=== PATIENT | female | born 1950 | race African-American/Black ===

== ENCOUNTER 2017-04-08 07:51 | Emergency (ER) | payer MEDICARE, MEDICAID, OTHER ==
[~2017-04-08] VITALS: Ht 162.6 cm; Wt 86.0 kg
[~2017-04-08 07:51] MED LIST: AMLO1TAB12 PO; ASPI-1073 PO; PANT40TA4 PO; RENVELA
[2017-04-08] MEDS ORDERED: HYDROCODONE/ACETAMINOPHEN 5/325MG TABLET PO ONE (08:30)
[2017-04-08] MEDS ORDERED: ONDANSETRON 4MG ODT PO ONE (08:30)
[2017-04-08] MEDS ORDERED: AMLODIPINE 5MG TABLET PO ONE (09:30)
[2017-04-08] MEDS ORDERED: LOSARTAN POTASSIUM 100 MG TABLET PO NR (10:15)
[2017-04-08 11:15] VITALS: BP 145/83
== END 2017-04-08 11:59 | disposition home or self-care (01) ==
LOC: ER 08:00
DX: S42.031A Displaced fracture of lateral end of right clavicle, initial encounter for closed fracture (principal); Y92.9 Unspecified place or not applicable; Y93.9 Activity, unspecified; X58.XXXA Exposure to other specified factors, initial encounter; I12.0 Hypertensive chronic kidney disease with stage 5 chronic kidney disease or end stage renal disease; N18.6 End stage renal disease; Z99.2 Dependence on renal dialysis; E03.9 Hypothyroidism, unspecified; Z79.82 Long term (current) use of aspirin; Z79.899 Other long term (current) drug therapy
CPT/HCPCS: 29105; 73030; 99284; Q0162; A4565

== ENCOUNTER 2018-08-06 12:38 | Inpatient (IN) | payer MEDICARE, OTHER ==
[~2018-08-06] VITALS: Ht 160 cm; Wt 111.6 kg
[~2018-08-06 12:38] MED LIST changes: +AMLO10TA80 PO; -AMLO1TAB12 PO; -ASPI-1073 PO; +CINA30 PO; +HYDR100T26 PO; +LEVO25TA7 PO; +LOSA100T14 PO; -PANT40TA4 PO; -RENVELA; +SEVE800T8 PO
[2018-08-06] MEDS ORDERED: MORPHINE SULFATE 4 MG/ML CPJ (NOT FOR IM USE) IV ONE (14:15)
[2018-08-06] MEDS ORDERED: MORPHINE SULFATE 10 MG/ML CPJ IV ONE (14:30)
[2018-08-06 14:38] LABS: BASOPHILS % 1.2 % (0.0-2.0); EOSINOPHILS % 0.9 % (0.0-5.0); HEMATOCRIT. 33.8 % (36.0-48.0); HEMOGLOBIN. 11.2 g/dL (12.0-16.0); LYMPHOCYTES % 16.5 % (20.0-50.0); MEAN CORPUSCULAR HEMOGLOBIN 33.9 pg (28.0-32.0); MEAN CORPUSCULAR VOLUME 102.1 fL (81.0-99.0); MEAN PLATELET VOLUME 7.4 fl (7.4-10.4); MONOCYTES % 9.4 % (2.0-8.0); PLATELET 269 x1000/uL (130-400); RED BLOOD CELL COUNT 3.31 mill/uL (4.2-5.4); RED CELL DISTRIBUTION WIDTH 16.6 % (11.6-14.6)
[2018-08-06 14:43] LABS: CHLORIDE 97 mEq/L (98-107)
[2018-08-06 14:44] LABS: INR 1.1; PROTHROMBIN TIME 10.9 sec (9.1-11.1)
[2018-08-06 22:45] VITALS: BP 157/84
[2018-08-07] VITALS: BP 157/84
[2018-08-07] MEDS ORDERED: CLONIDINE 0.1MG TABLET PO PRN (01:15)
[2018-08-07] MEDS: MORPHINE SULFATE 10 MG/ML CPJ IV PRN ×4 (03:07→22:16)
[2018-08-07 04:00] VITALS: BP_SYST 131; BP_SYST 133; BP_SYST 138; BP_DIAS 64; BP_DIAS 74; BP_DIAS 78
[2018-08-07 08:00] VITALS: BP 146/65
[2018-08-07] MEDS: LOSARTAN POTASSIUM 100 MG TABLET PO SCH (08:47)
[2018-08-07] MEDS: HYDRALAZINE HCL 100MG TABLET PO SCH ×2 (08:47→21:48)
[2018-08-07] MEDS: CINACALCET HCL 30MG TABLET PO SCH (08:47)
[2018-08-07] MEDS: SEVELAMER CARBONATE 800 MG TABLET PO SCH ×3 (08:47→17:36)
[2018-08-07] MEDS: ACETAMINOPHEN 325MG TABLET PO PRN (08:48)
[2018-08-07] MEDS: AMLODIPINE 10MG TABLET PO SCH (08:48)
[2018-08-07] MEDS: PANTOPRAZOLE 40MG DR TABLET PO SCH (08:48)
[2018-08-07] MEDS ORDERED: MEDICATION NOT ON FORMULARY EA (Losartan Potassium 100 MG) PO SCH (09:00)
[2018-08-07] MEDS ORDERED: MEDICATION NOT ON FORMULARY EA (Sevelamer Carbonate (Renvela) 800 MG) PO SCH (09:00)
[2018-08-07] MEDS ORDERED: MEDICATION NOT ON FORMULARY EA (Hydralazine Hcl 100 MG) PO SCH (09:00)
[2018-08-07] MEDS ORDERED: CEFEPIME HCL 1000MG/VIAL INJ IM SCH (09:00)
[2018-08-07 10:23] LABS: CHLORIDE 98 mEq/L (98-107)
[2018-08-07 10:27] LABS: BASOPHILS % 1.3 % (0.0-2.0); EOSINOPHILS % 3.1 % (0.0-5.0); HEMATOCRIT. 35.6 % (36.0-48.0); HEMOGLOBIN. 11.6 g/dL (12.0-16.0); LYMPHOCYTES % 20.3 % (20.0-50.0); MEAN CORPUSCULAR HEMOGLOBIN 33.9 pg (28.0-32.0); MEAN CORPUSCULAR VOLUME 103.6 fL (81.0-99.0); MEAN PLATELET VOLUME 7.6 fl (7.4-10.4); MONOCYTES % 9.2 % (2.0-8.0); NEUTROPHILS % 66.1 % (40.0-76.0); PLATELET 230 x1000/uL (130-400); RED BLOOD CELL COUNT 3.43 mill/uL (4.2-5.4); RED CELL DISTRIBUTION WIDTH 16.9 % (11.6-14.6)
[2018-08-07] MEDS ORDERED: VANCOMYCIN 2,000 MG in DEXT 5% WATER 500 ML IV NR (11:00)
[2018-08-07] MEDS: CEFEPIME 500 MG in DEXTROSE 5% WATER 50 ML IV SCH (11:15)
[2018-08-07 12:00] VITALS: BP 124/63
[2018-08-07 16:00] VITALS: BP 144/72
[2018-08-07] MEDS: FOLIC ACID/VITAMIN B COMP W-C TABLET PO SCH (17:35)
[2018-08-07 20:00] VITALS: BP 145/71
[2018-08-08] VITALS: BP 116/62
[2018-08-08 05:30] VITALS: BP 143/82
[2018-08-08] MEDS: MORPHINE SULFATE 10 MG/ML CPJ IV PRN ×3 (06:03→15:34)
[2018-08-08 06:33] LABS: PHOSPHORUS 7.5 mg/dL (2.5-4.9)
[2018-08-08 06:43] LABS: BASOPHILS % 0.5 % (0.0-2.0); HEMATOCRIT. 34.2 % (36.0-48.0); HEMOGLOBIN. 11.2 g/dL (12.0-16.0); LYMPHOCYTES % 21.3 % (20.0-50.0); MEAN CORPUSCULAR HEMOGLOBIN 33.6 pg (28.0-32.0); MEAN CORPUSCULAR VOLUME 102.7 fL (81.0-99.0); MEAN PLATELET VOLUME 7.8 fl (7.4-10.4); MONOCYTES % 9.1 % (2.0-8.0); NEUTROPHILS % 66.1 % (40.0-76.0); PLATELET 236 x1000/uL (130-400); RED BLOOD CELL COUNT 3.33 mill/uL (4.2-5.4); RED CELL DISTRIBUTION WIDTH 16.2 % (11.6-14.6)
[2018-08-08 08:00] VITALS: BP 138/77
[2018-08-08] MEDS: FOLIC ACID/VITAMIN B COMP W-C TABLET PO SCH (09:29)
[2018-08-08] MEDS: PANTOPRAZOLE 40MG DR TABLET PO SCH (09:29)
[2018-08-08] MEDS: HYDRALAZINE HCL 100MG TABLET PO SCH ×2 (09:30→21:00)
[2018-08-08] MEDS: AMLODIPINE 10MG TABLET PO SCH (09:30)
[2018-08-08] MEDS: LOSARTAN POTASSIUM 100 MG TABLET PO SCH (09:30)
[2018-08-08] MEDS: CINACALCET HCL 30MG TABLET PO SCH (09:30)
[2018-08-08] MEDS: CEFEPIME 500 MG in DEXTROSE 5% WATER 50 ML IV SCH (09:31)
[2018-08-08 12:00] VITALS: BP 130/69
[2018-08-08] MEDS ORDERED: LIDOCAINE HCL/PF 1% 2ML VIAL ONE (12:11)
[2018-08-08] MEDS: SEVELAMER CARBONATE 800 MG TABLET PO SCH ×2 (13:48→18:10)
[2018-08-08 16:13] LABS: BG BASE EXCESS 4.6 mmol/L (-2.0-2.0); BG CARBOXYHEMOGLOBIN 1.3 % (0.5-1.5); BG FRACTION INSPIRED OXYGEN 21; BG HCO3 ACT 31.6 mmol/L (22.0-26.0); BG METHEMOGLOBIN 0.3 % (0.0-1.5); BG OXYGEN SATURATION 83.7 % (92.0-98.5); BG OXYHEMOGLOBIN 82.4 % (94.0-97.0); BG PCO2 59.4 mmHg (35.0-45.0); BG PH 7.344 (7.350-7.450); BG PO2 49.8 mmHg (75.0-100.0); BG SAMPLE SITE LEFT RADIAL; BG TOTAL HEMOGLOBIN 11.7 g/dL (12.0-18.0); BG VENT MODE ROOM AIR
[2018-08-08] MEDS: ONDANSETRON HCL 4MG/2ML INJ IV PRN (18:11)
[2018-08-08 20:00] VITALS: BP 126/81
[2018-08-08] MEDS ORDERED: VANCOMYCIN 1250MG in DEXTROSE 5% WATER 250ML IV SCH (20:00)
[2018-08-09] VITALS: BP 114/58
[2018-08-09 04:00] VITALS: BP 111/58
[2018-08-09] MEDS: ONDANSETRON HCL 4MG/2ML INJ IV PRN (05:17)
[2018-08-09 07:48] LABS: HEMATOCRIT 32.7 % (36.0-48.0); HEMOGLOBIN 10.8 g/dL (12.0-16.0); MEAN CORPUSCULAR HEMOGLOBIN 34.2 pg (28.0-32.0); MEAN CORPUSCULAR VOLUME 103.8 fL (81.0-99.0); PLATELET 236 x1000/uL (130-400); RED BLOOD CELL COUNT 3.15 mill/uL (4.2-5.4); RED CELL DISTRIBUTION WIDTH 16.1 % (11.6-14.6)
[2018-08-09 08:00] VITALS: BP 120/59
[2018-08-09] MEDS: MORPHINE SULFATE 10 MG/ML CPJ IV PRN (09:04)
[2018-08-09] MEDS: FOLIC ACID/VITAMIN B COMP W-C TABLET PO SCH (09:05)
[2018-08-09] MEDS: SEVELAMER CARBONATE 800 MG TABLET PO SCH ×3 (09:05→18:10)
[2018-08-09] MEDS: CINACALCET HCL 30MG TABLET PO SCH (09:05)
[2018-08-09] MEDS: LOSARTAN POTASSIUM 100 MG TABLET PO SCH (09:05)
[2018-08-09] MEDS: AMLODIPINE 10MG TABLET PO SCH (09:06)
[2018-08-09] MEDS: FAMOTIDINE 20MG TABLET PO SCH (09:06)
[2018-08-09] MEDS: HYDRALAZINE HCL 100MG TABLET PO SCH ×2 (09:07→20:20)
[2018-08-09] MEDS: CEFEPIME 500 MG in DEXTROSE 5% WATER 50 ML IV SCH (11:59)
[2018-08-09 12:00] VITALS: BP 118/62
[2018-08-09 16:00] VITALS: BP 121/52
[2018-08-09] MEDS: ACETAMINOPHEN 325MG TABLET PO PRN (17:24)
[2018-08-09 20:00] VITALS: BP 109/62
[2018-08-10] VITALS: BP 102/56
[2018-08-10 04:00] VITALS: BP 110/59
[2018-08-10 08:18] VITALS: BP 121/64
[2018-08-10] MEDS: SEVELAMER CARBONATE 800 MG TABLET PO SCH ×3 (10:10→18:13)
[2018-08-10] MEDS: FOLIC ACID/VITAMIN B COMP W-C TABLET PO SCH (10:11)
[2018-08-10] MEDS: FAMOTIDINE 20MG TABLET PO SCH (10:11)
[2018-08-10] MEDS: CINACALCET HCL 30MG TABLET PO SCH (10:11)
[2018-08-10] MEDS: AMLODIPINE 10MG TABLET PO SCH (10:12)
[2018-08-10] MEDS: LOSARTAN POTASSIUM 100 MG TABLET PO SCH (10:12)
[2018-08-10] MEDS: HYDRALAZINE HCL 100MG TABLET PO SCH ×2 (10:12→21:00)
[2018-08-10] MEDS: CEFEPIME 500 MG in DEXTROSE 5% WATER 50 ML IV SCH (10:37)
[2018-08-10 12:03] VITALS: BP 111/48
[2018-08-10 16:13] VITALS: BP 115/59
[2018-08-10 20:00] VITALS: BP 95/46
[2018-08-11] VITALS (22 sets, daily range): BP systolic 92–151; BP diastolic 45–85
[2018-08-11] MEDS: SEVELAMER CARBONATE 800 MG TABLET PO SCH (08:10)
[2018-08-11] MEDS: LOSARTAN POTASSIUM 100 MG TABLET PO SCH (09:00)
[2018-08-11] MEDS: AMLODIPINE 10MG TABLET PO SCH (09:00)
[2018-08-11] MEDS: FOLIC ACID/VITAMIN B COMP W-C TABLET PO SCH (09:00)
[2018-08-11] MEDS: HYDRALAZINE HCL 100MG TABLET PO SCH ×2 (09:00→20:21)
[2018-08-11] MEDS: FAMOTIDINE 20MG TABLET PO SCH (09:00)
[2018-08-11] MEDS: CINACALCET HCL 30MG TABLET PO SCH (09:00)
[2018-08-11] MEDS: CEFEPIME 500 MG in DEXTROSE 5% WATER 50 ML IV SCH (11:37)
[2018-08-11] MEDS ORDERED: FENTANYL CITRATE/PF 50MCG/ML 2ML VIAL ONE (12:54)
[2018-08-11] MEDS ORDERED: LIDOCAINE HCL 1% 20ML VIAL (Pyxis) INJ ONE (13:13)
[2018-08-11] MEDS ORDERED: SODIUM BICARBONATE 4% (2.4MEQ) 5ML VIAL IV ONE (13:14)
[2018-08-11] MEDS ORDERED: FENTANYL CITRATE/PF 50MCG/ML 2ML VIAL IV ONE (14:30)
[2018-08-11 16:24] LABS: HEMATOCRIT 37.1 % (36.0-48.0); HEMOGLOBIN 11.7 g/dL (12.0-16.0)
[2018-08-11 22:47] LABS: INR 1.4; PARTIAL THROMBOPLASTIN TIME 28.1 sec (23.4-31.0); PROTHROMBIN TIME 13.8 sec (9.1-11.1)
[2018-08-12] VITALS (7 sets, daily range): BP systolic 103–167; BP diastolic 54–85
[2018-08-12 06:31] LABS: BASOPHILS % 0.9 % (0.0-2.0); EOSINOPHILS % 4.5 % (0.0-5.0); HEMATOCRIT. 32.8 % (36.0-48.0); HEMOGLOBIN. 10.6 g/dL (12.0-16.0); LYMPHOCYTES % 16.6 % (20.0-50.0); MEAN CORPUSCULAR HEMOGLOBIN 33.9 pg (28.0-32.0); MEAN CORPUSCULAR VOLUME 104.5 fL (81.0-99.0); MEAN PLATELET VOLUME 8.1 fl (7.4-10.4); PLATELET 232 x1000/uL (130-400); RED BLOOD CELL COUNT 3.14 mill/uL (4.2-5.4); RED CELL DISTRIBUTION WIDTH 15.7 % (11.6-14.6)
[2018-08-12] MEDS: SEVELAMER CARBONATE 800 MG TABLET PO SCH ×3 (08:10→17:38)
[2018-08-12] MEDS: HYDRALAZINE HCL 100MG TABLET PO SCH ×2 (08:26→20:18)
[2018-08-12] MEDS: LOSARTAN POTASSIUM 100 MG TABLET PO SCH (08:27)
[2018-08-12] MEDS: FAMOTIDINE 20MG TABLET PO SCH (08:27)
[2018-08-12] MEDS: AMLODIPINE 10MG TABLET PO SCH (08:27)
[2018-08-12] MEDS: CINACALCET HCL 30MG TABLET PO SCH (08:27)
[2018-08-12] MEDS: FOLIC ACID/VITAMIN B COMP W-C TABLET PO SCH (08:27)
[2018-08-12] MEDS: CEFEPIME 500 MG in DEXTROSE 5% WATER 50 ML IV SCH (13:36)
[2018-08-12] MEDS ORDERED: VANCOMYCIN 1 G PREMIX 200 ML IV NR (15:00)
[2018-08-12] MEDS: ACETAMINOPHEN 325MG TABLET PO PRN ×2 (15:16→23:06)
[2018-08-12] MEDS ORDERED: MORPHINE SULFATE 10 MG/ML CPJ IV NR (16:00)
[2018-08-13] MEDS: ACETAMINOPHEN 325MG TABLET PO PRN ×2 (03:52→11:49)
[2018-08-13] MEDS: BISACODYL 5MG TABLET PO PRN ×2 (03:53→18:15)
[2018-08-13 04:00] VITALS: BP 115/55
[2018-08-13 06:20] LABS: CHLORIDE 106 mEq/L (98-107)
[2018-08-13 06:25] LABS: HEMATOCRIT 33.9 % (36.0-48.0); HEMOGLOBIN 10.9 g/dL (12.0-16.0); MEAN CORPUSCULAR HEMOGLOBIN 33.4 pg (28.0-32.0); MEAN CORPUSCULAR VOLUME 104.1 fL (81.0-99.0); PLATELET 203 x1000/uL (130-400); RED BLOOD CELL COUNT 3.26 mill/uL (4.2-5.4); RED CELL DISTRIBUTION WIDTH 15.9 % (11.6-14.6)
[2018-08-13 06:28] LABS: PHOSPHORUS 6.1 mg/dL (2.5-4.9)
[2018-08-13 08:00] VITALS: BP 145/71
[2018-08-13] MEDS: CINACALCET HCL 30MG TABLET PO SCH (08:11)
[2018-08-13] MEDS: FOLIC ACID/VITAMIN B COMP W-C TABLET PO SCH (08:11)
[2018-08-13] MEDS: AMLODIPINE 10MG TABLET PO SCH (08:11)
[2018-08-13] MEDS: HYDRALAZINE HCL 100MG TABLET PO SCH ×2 (08:12→21:22)
[2018-08-13] MEDS: LOSARTAN POTASSIUM 100 MG TABLET PO SCH (10:11)
[2018-08-13] MEDS: FAMOTIDINE 20MG TABLET PO SCH ×2 (10:11→11:49)
[2018-08-13] MEDS: SEVELAMER CARBONATE 800 MG TABLET PO SCH ×3 (10:11→17:46)
[2018-08-13] MEDS: CEFEPIME 500 MG in DEXTROSE 5% WATER 50 ML IV SCH (11:52)
[2018-08-13 12:00] VITALS: BP_SYST 160; BP_SYST 83; BP_DIAS 55; BP_DIAS 80
[2018-08-13 16:00] VITALS: BP 148/81
[2018-08-13 20:00] VITALS: BP 145/52
[2018-08-14] VITALS: BP 135/56
[2018-08-14 04:00] VITALS: BP 125/59
[2018-08-14 08:00] VITALS: BP_SYST 113; BP_SYST 140; BP_DIAS 55; BP_DIAS 60
[2018-08-14] MEDS: FOLIC ACID/VITAMIN B COMP W-C TABLET PO SCH (08:02)
[2018-08-14] MEDS: AMLODIPINE 10MG TABLET PO SCH (08:02)
[2018-08-14] MEDS: CINACALCET HCL 30MG TABLET PO SCH (08:03)
[2018-08-14] MEDS: FAMOTIDINE 20MG TABLET PO SCH (08:03)
[2018-08-14] MEDS: SEVELAMER CARBONATE 800 MG TABLET PO SCH ×3 (08:10→18:13)
[2018-08-14 09:42] LABS: EOSINOPHILS % 3.5 % (0.0-5.0); HEMATOCRIT. 41.9 % (36.0-48.0); HEMOGLOBIN. 13.9 g/dL (12.0-16.0); LYMPHOCYTES % 21.6 % (20.0-50.0); MEAN CORPUSCULAR HEMOGLOBIN 34.3 pg (28.0-32.0); MEAN CORPUSCULAR VOLUME 103.7 fL (81.0-99.0); MEAN PLATELET VOLUME 8.5 fl (7.4-10.4); MONOCYTES % 6.8 % (2.0-8.0); NEUTROPHILS % 67.1 % (40.0-76.0); PLATELET 236 x1000/uL (130-400); RED BLOOD CELL COUNT 4.04 mill/uL (4.2-5.4); RED CELL DISTRIBUTION WIDTH 15.8 % (11.6-14.6)
[2018-08-14 09:54] LABS: PROTHROMBIN TIME 10.2 sec (9.1-11.1)
[2018-08-14] MEDS: CEFEPIME 500 MG in DEXTROSE 5% WATER 50 ML IV SCH (11:17)
[2018-08-14] MEDS: LOSARTAN POTASSIUM 100 MG TABLET PO SCH (11:17)
[2018-08-14 12:00] VITALS: BP 131/76
[2018-08-14] MEDS: ACETAMINOPHEN 325MG TABLET PO PRN (13:11)
[2018-08-14] MEDS: HYDRALAZINE HCL 100MG TABLET PO SCH ×2 (13:12→21:32)
[2018-08-14 16:00] VITALS: BP 127/59
[2018-08-14 20:00] VITALS: BP 107/57
[2018-08-14] MEDS ORDERED: VANCOMYCIN 1 G PREMIX 200 ML IV SCH (21:00)
[2018-08-15] VITALS (32 sets, daily range): BP systolic 96–184; BP diastolic 16–89
[2018-08-15] MEDS: ONDANSETRON HCL 4MG/2ML INJ IV PRN (00:47)
[2018-08-15] MEDS: BISACODYL 5MG TABLET PO PRN (00:47)
[2018-08-15] MEDS: HYDRALAZINE HCL 100MG TABLET PO SCH ×3 (06:00→22:00)
[2018-08-15 06:23] LABS: HEMATOCRIT 32.6 % (36.0-48.0); MEAN CORPUSCULAR HEMOGLOBIN 34.1 pg (28.0-32.0); MEAN CORPUSCULAR VOLUME 101.2 fL (81.0-99.0); PLATELET 193 x1000/uL (130-400); RED BLOOD CELL COUNT 3.22 mill/uL (4.2-5.4); RED CELL DISTRIBUTION WIDTH 15.4 % (11.6-14.6)
[2018-08-15] MEDS: SEVELAMER CARBONATE 800 MG TABLET PO SCH (08:10)
[2018-08-15] MEDS: CINACALCET HCL 30MG TABLET PO SCH (09:00)
[2018-08-15] MEDS: FOLIC ACID/VITAMIN B COMP W-C TABLET PO SCH (09:00)
[2018-08-15] MEDS: LOSARTAN POTASSIUM 100 MG TABLET PO SCH (09:00)
[2018-08-15] MEDS: AMLODIPINE 10MG TABLET PO SCH (09:00)
[2018-08-15] MEDS: FAMOTIDINE 20MG TABLET PO SCH (09:00)
[2018-08-15] MEDS ORDERED: LIDOCAINE HCL/EPINEPHRINE 1%-EPI 1:100,000 20 ML VIAL ONE (10:52)
[2018-08-15] MEDS ORDERED: NORMAL SALINE 0.9% 10 ML SYR ONE (10:52)
[2018-08-15] MEDS ORDERED: THROMBIN (BOVINE) 5000 UNITS/VIAL TOP ONE ×3 (10:52→15:30)
[2018-08-15] MEDS ORDERED: BACITRACIN 50,000 UNITS/VIAL ONE (10:53)
[2018-08-15] MEDS ORDERED: GELATIN SPONGE,ABSORBABLE 12-7MM SPONGE ONE (11:40)
[2018-08-15] MEDS ORDERED: PROPOFOL 200MG/20ML VIAL IV ONE (13:11)
[2018-08-15] MEDS ORDERED: NEOSTIGMINE METHYLSULFATE 1MG/ML 10 ML VIAL ONE (13:11)
[2018-08-15] MEDS ORDERED: MIDAZOLAM HCL 2 MG/2 ML VIAL ONE (13:11)
[2018-08-15] MEDS ORDERED: GLYCOPYRROLATE 0.2 MG/ML 2ML VIAL ONE ×2 (13:11→16:15)
[2018-08-15] MEDS ORDERED: ROCURONIUM BROMIDE 10MG/ML VIAL 5ML IV ONE (13:11)
[2018-08-15] MEDS ORDERED: FENTANYL CITRATE/PF 50MCG/ML 2ML VIAL ONE (13:11)
[2018-08-15] MEDS ORDERED: ONDANSETRON HCL 4MG/2ML INJ ONE (13:13)
[2018-08-15] MEDS ORDERED: DEXAMETHASONE 4MG/ML 1ML VIAL ONE (13:13)
[2018-08-15] MEDS ORDERED: HYDROMORPHONE HCL/PF 2MG/ML (OR) ONE (13:44)
[2018-08-15] MEDS ORDERED: LIDOCAINE HCL/PF 1% 10 MG/ML 5ML VIAL ONE (15:13)
[2018-08-15] MEDS ORDERED: SODIUM CHLORIDE 0.9% 10ML VIAL ONE (15:13)
[2018-08-15] MEDS ORDERED: LABETALOL HCL 5MG/ML VIAL 20ML IV ONE ×2 (15:13→16:35)
[2018-08-15] MEDS ORDERED: CEFAZOLIN SODIUM 1000MG/VIAL ONE (15:13)
[2018-08-15] MEDS ORDERED: EPHEDRINE SULFATE 50MG/ML VIAL ONE (15:13)
[2018-08-15] MEDS: DEXT 5%/LACTATED RINGERS 1,000 ML IV SCH (17:25)
[2018-08-15] MEDS: NICARDIPINE 100 MG in SODIUM CHLORIDE 0.9% 60 ML IV PRN ×2 (17:40→23:25)
[2018-08-15] MEDS ORDERED: HYDROMORPHONE PCA 10MG/50ML IV PRN (18:00)
[2018-08-15] MEDS ORDERED: DIPHENHYDRAMINE INJ IV PRN (18:00)
[2018-08-15] MEDS ORDERED: ONDANSETRON INJ IV PRN (18:00)
[2018-08-15] MEDS ORDERED: NALOXONE INJ IV PRN (18:00)
[2018-08-15] MEDS ORDERED: CEFAZOLIN SODIUM 1000MG/VIAL IV SCH (22:00)
[2018-08-15 23:07] LABS: HEMATOCRIT. 31.8 % (36.0-48.0); HEMOGLOBIN. 10.4 g/dL (12.0-16.0); MEAN CORPUSCULAR HEMOGLOBIN 33.8 pg (28.0-32.0); MEAN CORPUSCULAR VOLUME 103.2 fL (81.0-99.0); MEAN PLATELET VOLUME 8.3 fl (7.4-10.4); PLATELET 249 x1000/uL (130-400); RED BLOOD CELL COUNT 3.08 mill/uL (4.2-5.4); RED CELL DISTRIBUTION WIDTH 14.9 % (11.6-14.6)
[2018-08-15 23:44] LABS: PLATELET ESTIMATE NORMAL
[2018-08-16] VITALS (69 sets, daily range): BP systolic 0–175; BP diastolic 0–174
[2018-08-16 05:04] LABS: HEMATOCRIT. 31.4 % (36.0-48.0); HEMOGLOBIN. 10.3 g/dL (12.0-16.0); MEAN CORPUSCULAR HEMOGLOBIN 33.7 pg (28.0-32.0); MEAN CORPUSCULAR VOLUME 102.7 fL (81.0-99.0); MEAN PLATELET VOLUME 8.1 fl (7.4-10.4); PLATELET 265 x1000/uL (130-400); RED BLOOD CELL COUNT 3.06 mill/uL (4.2-5.4); RED CELL DISTRIBUTION WIDTH 15.4 % (11.6-14.6)
[2018-08-16] MEDS: HYDRALAZINE HCL 100MG TABLET PO SCH ×3 (06:00→21:26)
[2018-08-16] MEDS: SEVELAMER CARBONATE 800 MG TABLET PO SCH ×4 (07:00→17:07)
[2018-08-16] MEDS: NICARDIPINE 100 MG in SODIUM CHLORIDE 0.9% 60 ML IV PRN (07:01)
[2018-08-16] MEDS: FOLIC ACID/VITAMIN B COMP W-C TABLET PO SCH (08:41)
[2018-08-16] MEDS: LOSARTAN POTASSIUM 100 MG TABLET PO SCH (08:41)
[2018-08-16] MEDS: CEFAZOLIN 1000MG PREMIX 50 ML IV SCH (08:41)
[2018-08-16] MEDS: CINACALCET HCL 30MG TABLET PO SCH (08:42)
[2018-08-16] MEDS: FAMOTIDINE 20MG TABLET PO SCH (08:42)
[2018-08-16] MEDS: AMLODIPINE 10MG TABLET PO SCH (08:42)
[2018-08-16] MEDS: DEXT 5%/LACTATED RINGERS 1,000 ML IV SCH (08:49)
[2018-08-16] MEDS ORDERED: HYDROMORPHONE HCL/PF 2MG/ML CPJ IV PRN ×4 (11:15→20:00)
[2018-08-16] MEDS: ONDANSETRON HCL 4MG/2ML INJ IV PRN (17:20)
[2018-08-16 17:49] LABS: PLATELET ESTIMATE NORMAL
[2018-08-16 19:06] LABS: T4 FREE 0.9 ng/dL (0.76-1.46)
[2018-08-16] MEDS: HYDROMORPHONE HCL/PF 2MG/ML CPJ IV PRN (20:08)
[2018-08-17] VITALS (36 sets, daily range): BP systolic 97–128; BP diastolic 33–66
[2018-08-17] MEDS: HYDROMORPHONE HCL/PF 2MG/ML CPJ IV PRN ×4 (01:49→20:27)
[2018-08-17] MEDS: DEXT 5%/LACTATED RINGERS 1,000 ML IV SCH ×2 (01:58→19:08)
[2018-08-17 05:15] LABS: BASOPHILS % 0.4 % (0.0-2.0); EOSINOPHILS % 0.7 % (0.0-5.0); HEMOGLOBIN. 8.9 g/dL (12.0-16.0); LYMPHOCYTES % 9.1 % (20.0-50.0); MEAN CORPUSCULAR HEMOGLOBIN 33.8 pg (28.0-32.0); MEAN CORPUSCULAR VOLUME 103.1 fL (81.0-99.0); MEAN PLATELET VOLUME 8.3 fl (7.4-10.4); MONOCYTES % 9.4 % (2.0-8.0); NEUTROPHILS % 80.4 % (40.0-76.0); PLATELET 202 x1000/uL (130-400); RED BLOOD CELL COUNT 2.62 mill/uL (4.2-5.4); RED CELL DISTRIBUTION WIDTH 15.2 % (11.6-14.6)
[2018-08-17] MEDS: HYDRALAZINE HCL 100MG TABLET PO SCH ×3 (06:00→21:00)
[2018-08-17] MEDS: FAMOTIDINE 20MG TABLET PO SCH (09:26)
[2018-08-17] MEDS: FOLIC ACID/VITAMIN B COMP W-C TABLET PO SCH (09:26)
[2018-08-17] MEDS: CEFAZOLIN 1000MG PREMIX 50 ML IV SCH (09:26)
[2018-08-17] MEDS: LOSARTAN POTASSIUM 100 MG TABLET PO SCH (09:27)
[2018-08-17] MEDS: SEVELAMER CARBONATE 800 MG TABLET PO SCH ×3 (09:27→17:48)
[2018-08-17] MEDS: CINACALCET HCL 30MG TABLET PO SCH (09:27)
[2018-08-17] MEDS: AMLODIPINE 10MG TABLET PO SCH (09:27)
[2018-08-17] MEDS: ONDANSETRON HCL 4MG/2ML INJ IV PRN ×2 (09:28→23:49)
[2018-08-17 17:57] LABS: HEMATOCRIT 26.1 % (36.0-48.0); HEMOGLOBIN 8.4 g/dL (12.0-16.0)
[2018-08-18] VITALS (37 sets, daily range): BP systolic 104–153; BP diastolic 47–98
[2018-08-18] MEDS: HYDROMORPHONE HCL/PF 2MG/ML CPJ IV PRN ×4 (01:03→20:00)
[2018-08-18] MEDS: HYDRALAZINE HCL 100MG TABLET PO SCH ×3 (05:07→21:48)
[2018-08-18 06:20] LABS: BASOPHILS % 0.4 % (0.0-2.0); EOSINOPHILS % 1.4 % (0.0-5.0); HEMATOCRIT. 24.6 % (36.0-48.0); HEMOGLOBIN. 8.1 g/dL (12.0-16.0); MEAN CORPUSCULAR HEMOGLOBIN 33.8 pg (28.0-32.0); MEAN CORPUSCULAR VOLUME 102.7 fL (81.0-99.0); MEAN PLATELET VOLUME 8.3 fl (7.4-10.4); MONOCYTES % 10.9 % (2.0-8.0); NEUTROPHILS % 74.3 % (40.0-76.0); PLATELET 173 x1000/uL (130-400); RED BLOOD CELL COUNT 2.39 mill/uL (4.2-5.4); RED CELL DISTRIBUTION WIDTH 14.8 % (11.6-14.6)
[2018-08-18] MEDS: SEVELAMER CARBONATE 800 MG TABLET PO SCH ×2 (06:45→12:30)
[2018-08-18] MEDS: CINACALCET HCL 30MG TABLET PO SCH (12:03)
[2018-08-18] MEDS: LOSARTAN POTASSIUM 100 MG TABLET PO SCH (12:03)
[2018-08-18] MEDS: FOLIC ACID/VITAMIN B COMP W-C TABLET PO SCH (12:03)
[2018-08-18] MEDS: AMLODIPINE 10MG TABLET PO SCH (12:03)
[2018-08-18] MEDS: FAMOTIDINE 20MG TABLET PO SCH (12:04)
[2018-08-18] MEDS: CEFAZOLIN 1000MG PREMIX 50 ML IV SCH (12:28)
[2018-08-19] VITALS (9 sets, daily range): BP systolic 114–147; BP diastolic 53–73
[2018-08-19] MEDS: HYDROMORPHONE HCL/PF 2MG/ML CPJ IV PRN ×6 (00:20→21:41)
[2018-08-19] MEDS: HYDRALAZINE HCL 100MG TABLET PO SCH ×3 (06:00→21:42)
[2018-08-19] MEDS: FAMOTIDINE 20MG TABLET PO SCH (08:57)
[2018-08-19] MEDS: FOLIC ACID/VITAMIN B COMP W-C TABLET PO SCH (08:58)
[2018-08-19] MEDS: AMLODIPINE 10MG TABLET PO SCH (08:58)
[2018-08-19] MEDS: LOSARTAN POTASSIUM 100 MG TABLET PO SCH (09:00)
[2018-08-19] MEDS: CINACALCET HCL 30MG TABLET PO SCH (10:12)
[2018-08-19] MEDS: CEFAZOLIN 1000MG PREMIX 50 ML IV SCH (11:38)
[2018-08-19] MEDS: SEVELAMER CARBONATE 800 MG TABLET PO SCH ×3 (12:12→18:22)
[2018-08-19 20:42] LABS: HEMATOCRIT 26.5 % (36.0-48.0); HEMOGLOBIN 8.8 g/dL (12.0-16.0); MEAN CORPUSCULAR HEMOGLOBIN 32.3 pg (28.0-32.0); MEAN CORPUSCULAR VOLUME 97.5 fL (81.0-99.0); PLATELET 226 x1000/uL (130-400); RED BLOOD CELL COUNT 2.71 mill/uL (4.2-5.4); RED CELL DISTRIBUTION WIDTH 17.5 % (11.6-14.6)
[2018-08-20] VITALS (7 sets, daily range): BP systolic 117–148; BP diastolic 61–80
[2018-08-20] MEDS: HYDROMORPHONE HCL/PF 2MG/ML CPJ IV PRN ×5 (01:39→18:00)
[2018-08-20] MEDS: HYDRALAZINE HCL 100MG TABLET PO SCH ×3 (05:47→21:34)
[2018-08-20 07:07] LABS: BASOPHILS % 0.6 % (0.0-2.0); EOSINOPHILS % 1.5 % (0.0-5.0); HEMATOCRIT. 30.5 % (36.0-48.0); LYMPHOCYTES % 8.3 % (20.0-50.0); MEAN CORPUSCULAR HEMOGLOBIN 32.1 pg (28.0-32.0); MEAN CORPUSCULAR VOLUME 98.2 fL (81.0-99.0); MEAN PLATELET VOLUME 7.9 fl (7.4-10.4); MONOCYTES % 7.1 % (2.0-8.0); NEUTROPHILS % 82.5 % (40.0-76.0); PLATELET 243 x1000/uL (130-400); RED BLOOD CELL COUNT 3.11 mill/uL (4.2-5.4); RED CELL DISTRIBUTION WIDTH 17.3 % (11.6-14.6)
[2018-08-20] MEDS: SEVELAMER CARBONATE 800 MG TABLET PO SCH ×3 (08:30→17:59)
[2018-08-20] MEDS: CINACALCET HCL 30MG TABLET PO SCH (08:30)
[2018-08-20] MEDS: FAMOTIDINE 20MG TABLET PO SCH (08:30)
[2018-08-20] MEDS: FOLIC ACID/VITAMIN B COMP W-C TABLET PO SCH (08:30)
[2018-08-20] MEDS: CEFAZOLIN 1000MG PREMIX 50 ML IV SCH (08:36)
[2018-08-20] MEDS: AMLODIPINE 10MG TABLET PO SCH (08:37)
[2018-08-20] MEDS: LOSARTAN POTASSIUM 100 MG TABLET PO SCH (08:37)
[2018-08-20] MEDS ORDERED: DOCUSATE SODIUM 250MG CAPSULE PO SCH (09:00)
[2018-08-20] MEDS ORDERED: HYDROCODONE/APAP 7.5/325MG 1 TAB TABLET PO PRN (10:00)
[2018-08-20] MEDS: ACETAMINOPHEN 325MG TABLET PO PRN (21:34)
== END 2018-08-20 23:30 | DRG 459 ==
LOC: ER 12:38 → 7WST 15:19 → ENRESERV 19:54 → MICUSO 08-15 15:02 → 6EST 08-18 18:49
PROVIDERS: ADMIT Internal Medicine; ATTEND Internal Medicine
PROC: 5A1D70Z Performance of Urinary Filtration, Intermittent, Less than 6 Hours Per Day (ICD-10-PCS; 2018-08-08)
PROC: 5A1D70Z Performance of Urinary Filtration, Intermittent, Less than 6 Hours Per Day (ICD-10-PCS; 2018-08-09)
PROC: 0QB03ZX Excision of Lumbar Vertebra, Percutaneous Approach, Diagnostic (ICD-10-PCS; 2018-08-11)
PROC: 5A1D70Z Performance of Urinary Filtration, Intermittent, Less than 6 Hours Per Day (ICD-10-PCS; 2018-08-11)
PROC: 5A1D70Z Performance of Urinary Filtration, Intermittent, Less than 6 Hours Per Day (ICD-10-PCS; 2018-08-14)
PROC: 0SG00K1 Fusion of Lumbar Vertebral Joint with Nonautologous Tissue Substitute, Posterior Approach, Posterior Column, Open Approach (ICD-10-PCS; principal; 2018-08-15)
PROC: 01NB0ZZ Release Lumbar Nerve, Open Approach (ICD-10-PCS; 2018-08-15)
PROC: 4A11X4G Monitoring of Peripheral Nervous Electrical Activity, Intraoperative, External Approach (ICD-10-PCS; 2018-08-15)
PROC: BR191ZZ Fluoroscopy of Lumbar Spine using Low Osmolar Contrast (ICD-10-PCS; 2018-08-15)
PROC: 06HY33Z Insertion of Infusion Device into Lower Vein, Percutaneous Approach (ICD-10-PCS; 2018-08-16)
PROC: B54CZZA Ultrasonography of Left Lower Extremity Veins, Guidance (ICD-10-PCS; 2018-08-16)
PROC: 5A1D70Z Performance of Urinary Filtration, Intermittent, Less than 6 Hours Per Day (ICD-10-PCS; 2018-08-16)
PROC: 5A1D70Z Performance of Urinary Filtration, Intermittent, Less than 6 Hours Per Day (ICD-10-PCS; 2018-08-18)
PROC: 30233N1 Transfusion of Nonautologous Red Blood Cells into Peripheral Vein, Percutaneous Approach (ICD-10-PCS; 2018-08-19)
PROC: 5A1D70Z Performance of Urinary Filtration, Intermittent, Less than 6 Hours Per Day (ICD-10-PCS; 2018-08-20)
DX: M84.48XA Pathological fracture, other site, initial encounter for fracture (principal); I50.33 Acute on chronic diastolic (congestive) heart failure; N18.6 End stage renal disease; C78.00 Secondary malignant neoplasm of unspecified lung; N25.81 Secondary hyperparathyroidism of renal origin; E66.2 Morbid (severe) obesity with alveolar hypoventilation; J44.1 Chronic obstructive pulmonary disease with (acute) exacerbation; I47.2 Ventricular tachycardia; J84.9 Interstitial pulmonary disease, unspecified; C79.51 Secondary malignant neoplasm of bone; G82.20 Paraplegia, unspecified; I13.2 Hypertensive heart and chronic kidney disease with heart failure and with stage 5 chronic kidney disease, or end stage renal disease; G95.9 Disease of spinal cord, unspecified; Z68.41 Body mass index [BMI] 40.0-44.9, adult; Z99.2 Dependence on renal dialysis; E83.39 Other disorders of phosphorus metabolism; E87.5 Hyperkalemia; I27.20 Pulmonary hypertension, unspecified; K21.9 Gastro-esophageal reflux disease without esophagitis; M54.16 Radiculopathy, lumbar region; D18.03 Hemangioma of intra-abdominal structures; D63.1 Anemia in chronic kidney disease; G89.29 Other chronic pain; E11.22 Type 2 diabetes mellitus with diabetic chronic kidney disease; E89.0 Postprocedural hypothyroidism; G47.33 Obstructive sleep apnea (adult) (pediatric); M46.96 Unspecified inflammatory spondylopathy, lumbar region; M48.061 Spinal stenosis, lumbar region without neurogenic claudication; Z79.890 Hormone replacement therapy; Z79.899 Other long term (current) drug therapy; Z93.0 Tracheostomy status; Z99.81 Dependence on supplemental oxygen
CPT/HCPCS: 36415; 36569; 36600; 71045; 72100; 72131; 72148; 74018; 76937; 77012; 80048; 80202; 82375; 82805; 82962; 83735; 83880; 84100; 84145; 84439; 84443; 84481; 84484; 85014; 85018; 85027; 86850; 86900; 86920; 88304; 88305; 88311; 88331; 93005; 93970; 95863; 95925; 95926; 96374; 97110; 97162; 97164; 97167; 97530; 99285; C1713; C1893; J0690; J0692; J1100; J1170; J1642; J2250; J2270; J2405; J2704; J2710; J3010; J3370; J3490; J7040; J7050; J7060; J7121; P9016

== ENCOUNTER 2019-09-02 18:52 | Emergency (ER) | payer MEDICARE, MEDICAID ==
[~2019-09-02] VITALS: Ht 157.5 cm; Wt 109.0 kg
[~2019-09-02 18:52] MED LIST changes: +CEFT2FRO5 IV; +DOCU250C14 PO; +FAMO40TA7 PO; +HYDR-3280 MT; +HYDR-3282 MT; -LOSA100T14 PO; +LOSA100T32 PO; +ONDA4TAB5 MT; +PREG75CA PO
[2019-09-02 20:03] LABS: BASOPHILS % 1.1 % (0.0-2.0); EOSINOPHILS % 3.3 % (0.0-5.0); HEMOGLOBIN. 8.2 g/dL (12.0-16.0); LYMPHOCYTES % 15.3 % (20.0-50.0); MEAN CORPUSCULAR HEMOGLOBIN 33.4 pg (28.0-32.0); MEAN CORPUSCULAR VOLUME 101.4 fL (81.0-99.0); MONOCYTES % 8.1 % (2.0-8.0); NEUTROPHILS % 72.2 % (40.0-76.0); PLATELET 211 x1000/uL (130-400); RED BLOOD CELL COUNT 2.47 mill/uL (4.2-5.4); RED CELL DISTRIBUTION WIDTH 16.4 % (11.6-14.6)
[2019-09-02 20:15] LABS: CHLORIDE 102 mEq/L (98-107)
[2019-09-02] MEDS ORDERED: MORPHINE SULFATE 4 MG/ML CPJ (NOT FOR IM USE) IV ONE (20:30)
[2019-09-02] MEDS ORDERED: ONDANSETRON HCL 4MG/2ML INJ IV ONE (20:30)
[2019-09-02 22:35] VITALS: BP 142/63
== END 2019-09-02 22:53 | disposition home or self-care (01) ==
LOC: ER 18:52 → CANBEDREQ 23:07
DX: M79.601 Pain in right arm (principal)
CPT/HCPCS: 36415; 71045; 76641; 80053; 83735; 84100; 84484; 85025; 86850; 86900; 86901; 93005; 93971; 96374; 96375; 99284; J2270; J2405

== ENCOUNTER → 2020-03-03 | Outpatient (CLI) | payer MEDICARE, MEDICAID ==
[2020-03-03 11:48] LABS: BASOPHILS % 1.1 % (0.0-2.0); EOSINOPHILS % 1.4 % (0.0-5.0); HEMATOCRIT. 32.1 % (36.0-48.0); HEMOGLOBIN. 10.4 g/dL (12.0-16.0); LYMPHOCYTES % 16.6 % (20.0-50.0); MEAN CORPUSCULAR HEMOGLOBIN 31.1 pg (28.0-32.0); MEAN CORPUSCULAR VOLUME 95.7 fL (81.0-99.0); MEAN PLATELET VOLUME 8.3 fl (7.4-10.4); MONOCYTES % 7.9 % (2.0-8.0); PLATELET 232 x1000/uL (130-400); RED BLOOD CELL COUNT 3.35 mill/uL (4.2-5.4); RED CELL DISTRIBUTION WIDTH 17.4 % (11.6-14.6)
[2020-03-03 11:56] LABS: INR 1.2; PARTIAL THROMBOPLASTIN TIME 30.3 sec (23.4-31.0); PROTHROMBIN TIME 12.9 sec (9.6-11.0)
== END | disposition home or self-care (01) ==
LOC: LAB 10:55
PROVIDERS: ATTEND Internal Medicine Hematology & Oncology
DX: Z01.818 Encounter for other preprocedural examination (principal); C34.12 Malignant neoplasm of upper lobe, left bronchus or lung; N18.6 End stage renal disease; Z11.59 Encounter for screening for other viral diseases
CPT/HCPCS: 36415; 80048; 85025; 85610; 85730; C9803; U0003

== ENCOUNTER → 2020-03-08 | Day surgery (SDC) | payer MEDICARE, MEDICAID ==
[2020-03-08] VITALS (21 sets, daily range): BP systolic 140–172; BP diastolic 78–89
[~2020-03-08] VITALS: Ht 160 cm; Wt 93.4 kg
[~2020-03-08] MED LIST changes: +CEFAZOLIN 1000MG PREMIX 50 ML IV ONE; +CEFAZOLIN 1000MG PREMIX 50 ML IV SCH; +FENTANYL CITRATE/PF 50MCG/ML 2ML VIAL IV ONE; +FENTANYL CITRATE/PF 50MCG/ML 2ML VIAL ONE; +LIDOCAINE HCL 1% 20ML VIAL (Pyxis) INJ ONE; +LIDOCAINE HCL/EPINEPHRINE 1%-EPI 1:100,000 20 ML VIAL ONE; +SODIUM BICARBONATE 4% (2.4MEQ) 5ML VIAL IV ONE
== END | disposition home or self-care (01) ==
LOC: RAD 08:13
PROVIDERS: ATTEND Internal Medicine Hematology & Oncology
DX: Z45.2 Encounter for adjustment and management of vascular access device (principal); C34.12 Malignant neoplasm of upper lobe, left bronchus or lung; M19.90 Unspecified osteoarthritis, unspecified site; I50.9 Heart failure, unspecified; I13.2 Hypertensive heart and chronic kidney disease with heart failure and with stage 5 chronic kidney disease, or end stage renal disease; N18.6 End stage renal disease; Z79.899 Other long term (current) drug therapy; Z98.890 Other specified postprocedural states
CPT/HCPCS: 36561; 76937; 77001; J0690; J3010; J3490; 99152; 99153; G0500

== ENCOUNTER 2020-11-11 13:28 | Inpatient (IN) | payer MEDICARE, MEDICAID ==
[~2020-11-11] VITALS: Ht 165.1 cm; Wt 77.1 kg
[~2020-11-11 13:28] MED LIST changes: -CEFAZOLIN 1000MG PREMIX 50 ML IV ONE; -CEFAZOLIN 1000MG PREMIX 50 ML IV SCH; -FENTANYL CITRATE/PF 50MCG/ML 2ML VIAL IV ONE; -FENTANYL CITRATE/PF 50MCG/ML 2ML VIAL ONE; -HYDR-3280 MT; -HYDR-3282 MT; +HYDR-4348 MT; +HYDR-4350 MT; -LIDOCAINE HCL 1% 20ML VIAL (Pyxis) INJ ONE; -LIDOCAINE HCL/EPINEPHRINE 1%-EPI 1:100,000 20 ML VIAL ONE; -SODIUM BICARBONATE 4% (2.4MEQ) 5ML VIAL IV ONE
[2020-11-11] MEDS ORDERED: MORPHINE SULFATE 4 MG/ML CPJ (NOT FOR IM USE) IV STA (14:32)
[2020-11-11] MEDS ORDERED: ONDANSETRON HCL 4MG/2ML INJ IV STA (14:32)
[2020-11-11] MEDS ORDERED: SODIUM CHLORIDE 0.9% 1,000 ML IV ONE (14:45)
[2020-11-11 15:31] LABS: BASOPHILS % 1.2 % (0.0-2.0); EOSINOPHILS % 1.3 % (0.0-5.0); HEMATOCRIT. 37.3 % (36.0-48.0); LYMPHOCYTES % 20.3 % (20.0-50.0); MEAN CORPUSCULAR VOLUME 96.7 fL (81.0-99.0); MEAN PLATELET VOLUME 8.4 fl (7.4-10.4); MONOCYTES % 10.1 % (2.0-8.0); NEUTROPHILS % 67.1 % (40.0-76.0); PLATELET 191 x1000/uL (130-400); RED BLOOD CELL COUNT 3.86 mill/uL (4.2-5.4); RED CELL DISTRIBUTION WIDTH 17.1 % (11.6-14.6)
[2020-11-11 15:32] LABS: CHLORIDE 98 mEq/L (98-107)
[2020-11-11] MEDS ORDERED: CEFTRIAXONE 1 G PREMIX 50 ML IV ONE (16:00)
[2020-11-11] MEDS ORDERED: AZITHROMYCIN 500 MG in DEXT 5% WATER 250 ML IV ONE (16:00)
[2020-11-11] MEDS ORDERED: MORPHINE SULFATE 4 MG/ML CPJ (NOT FOR IM USE) IV ONE (18:30)
[2020-11-11] MEDS ORDERED: ONDANSETRON HCL 4MG/2ML INJ IV PRN (18:45)
[2020-11-11] MEDS ORDERED: LORAZEPAM 0.5MG TABLET PO PRN (18:45)
[2020-11-11] MEDS ORDERED: ACETAMINOPHEN 325MG TABLET PO PRN (18:45)
[2020-11-11] MEDS ORDERED: IPRATROPIUM/ALBUTEROL 0.5-3(2.5)MG/3ML NEB HHN PRN (18:45)
[2020-11-11] MEDS: LIDOCAINE 5% PATCH TOP SCH ×2 (19:37)
[2020-11-11 21:00] VITALS: BP 153/46
[2020-11-12] VITALS: BP 136/37
[2020-11-12] MEDS ORDERED: HYDR-4009 MT (00:50)
[2020-11-12] MEDS ORDERED: *PATIENT'S OWN MEDICATION STORAGE XX SCH (02:45)
[2020-11-12 04:00] VITALS: BP 152/61
[2020-11-12] MEDS: HYDROCODONE/ACETAMINOPHEN 5/325MG TABLET PO PRN ×2 (06:35→13:20)
[2020-11-12 07:12] LABS: BASOPHILS % 0.8 % (0.0-2.0); EOSINOPHILS % 4.1 % (0.0-5.0); HEMOGLOBIN. 11.1 g/dL (12.0-16.0); LYMPHOCYTES % 24.3 % (20.0-50.0); MEAN CORPUSCULAR HEMOGLOBIN 31.6 pg (28.0-32.0); MEAN CORPUSCULAR VOLUME 96.6 fL (81.0-99.0); MEAN PLATELET VOLUME 8.2 fl (7.4-10.4); MONOCYTES % 9.9 % (2.0-8.0); NEUTROPHILS % 60.9 % (40.0-76.0); PLATELET 180 x1000/uL (130-400); RED BLOOD CELL COUNT 3.52 mill/uL (4.2-5.4); RED CELL DISTRIBUTION WIDTH 16.9 % (11.6-14.6)
[2020-11-12 08:00] VITALS: BP 156/41
[2020-11-12] MEDS: LIDOCAINE 5% PATCH TOP SCH ×2 (10:46)
[2020-11-12 12:00] VITALS: BP 187/79
[2020-11-12] MEDS: SEVELAMER CARBONATE 800 MG TABLET PO SCH ×2 (14:31→17:02)
[2020-11-12] MEDS: LEVOTHYROXINE SODIUM 25MCG TABLET PO SCH (14:32)
[2020-11-12] MEDS: CLONIDINE 0.1MG TABLET PO PRN (14:33)
[2020-11-12] MEDS: DOCUSATE SODIUM SUGAR FREE 100MG/10ML UDC PO SCH (14:34)
[2020-11-12] MEDS ORDERED: CINACALCET HCL 60MG TABLET PO SCH (15:00)
[2020-11-12 16:00] VITALS: BP 175/61
[2020-11-12] MEDS ORDERED: CALCIUM CARBONATE 500MG TABLET CHEW PO NR (16:30)
[2020-11-12] MEDS ORDERED: SEVELAMER CARBONATE 800 MG TABLET PO SCH (17:00)
[2020-11-12] MEDS: CINACALCET HCL 30MG TABLET PO SCH (17:02)
[2020-11-12 20:00] VITALS: BP 167/63
[2020-11-12] MEDS: FAMOTIDINE 20MG TABLET PO SCH (23:35)
[2020-11-12] MEDS: PREGABALIN 75MG CAPSULE PO SCH (23:35)
[2020-11-13] VITALS: BP 115/37
[2020-11-13 04:00] VITALS: BP 130/46
[2020-11-13] MEDS: LEVOTHYROXINE SODIUM 25MCG TABLET PO SCH (06:28)
[2020-11-13] MEDS: SEVELAMER CARBONATE 800 MG TABLET PO SCH ×3 (06:28→17:16)
[2020-11-13 06:37] LABS: EOSINOPHILS % 3.5 % (0.0-5.0); HEMATOCRIT. 33.8 % (36.0-48.0); HEMOGLOBIN. 11.1 g/dL (12.0-16.0); LYMPHOCYTES % 19.1 % (20.0-50.0); MEAN CORPUSCULAR HEMOGLOBIN 32.1 pg (28.0-32.0); MEAN PLATELET VOLUME 8.3 fl (7.4-10.4); MONOCYTES % 9.8 % (2.0-8.0); NEUTROPHILS % 66.6 % (40.0-76.0); PLATELET 160 x1000/uL (130-400); RED BLOOD CELL COUNT 3.45 mill/uL (4.2-5.4); RED CELL DISTRIBUTION WIDTH 17.5 % (11.6-14.6)
[2020-11-13 08:00] VITALS: BP 151/68
[2020-11-13] MEDS: DOCUSATE SODIUM SUGAR FREE 100MG/10ML UDC PO SCH (08:54)
[2020-11-13] MEDS: PREGABALIN 75MG CAPSULE PO SCH ×2 (08:54→20:09)
[2020-11-13] MEDS: CINACALCET HCL 30MG TABLET PO SCH (08:54)
[2020-11-13] MEDS: LIDOCAINE 5% PATCH TOP SCH ×2 (08:58)
[2020-11-13] MEDS: HYDROCODONE/ACETAMINOPHEN 10/325MG TABLET PO PRN ×2 (09:02→20:09)
[2020-11-13 12:00] VITALS: BP 156/56
[2020-11-13 16:00] VITALS: BP 147/52
[2020-11-13 20:00] VITALS: BP 135/57
[2020-11-13] MEDS: FAMOTIDINE 20MG TABLET PO SCH (20:09)
[2020-11-14] VITALS: BP 149/50
[2020-11-14] MEDS: DOCUSATE SODIUM 100MG CAPSULE PO PRN (00:40)
[2020-11-14] MEDS: HYDROCODONE/ACETAMINOPHEN 10/325MG TABLET PO PRN ×3 (03:40→17:42)
[2020-11-14 04:00] VITALS: BP 131/60
[2020-11-14] MEDS: LEVOTHYROXINE SODIUM 25MCG TABLET PO SCH (06:08)
[2020-11-14 08:00] VITALS: BP 144/52
[2020-11-14] MEDS: SEVELAMER CARBONATE 800 MG TABLET PO SCH ×3 (08:58→17:42)
[2020-11-14] MEDS: PREGABALIN 75MG CAPSULE PO SCH ×2 (08:58→20:25)
[2020-11-14] MEDS: CINACALCET HCL 30MG TABLET PO SCH (08:58)
[2020-11-14] MEDS: LIDOCAINE 5% PATCH TOP SCH ×2 (08:59)
[2020-11-14] MEDS: DOCUSATE SODIUM SUGAR FREE 100MG/10ML UDC PO SCH (09:01)
[2020-11-14 12:00] VITALS: BP 111/47
[2020-11-14] MEDS ORDERED: LIDOCAINE HCL 1% 20ML VIAL (Pyxis) INJ ONE (14:21)
[2020-11-14] MEDS ORDERED: IOHEXOL-300 50 ML BOTTLE IV ONE (14:21)
[2020-11-14 16:00] VITALS: BP 145/53
[2020-11-14 20:00] VITALS: BP 164/86
[2020-11-14] MEDS: FAMOTIDINE 20MG TABLET PO SCH (20:25)
[2020-11-15] VITALS: BP 135/37
[2020-11-15] MEDS: ACETAMINOPHEN 325MG TABLET PO PRN (02:37)
[2020-11-15 04:00] VITALS: BP 156/45
[2020-11-15 06:02] LABS: BASOPHILS % 0.6 % (0.0-2.0); EOSINOPHILS % 2.4 % (0.0-5.0); HEMATOCRIT. 33.2 % (36.0-48.0); HEMOGLOBIN. 10.9 g/dL (12.0-16.0); LYMPHOCYTES % 19.2 % (20.0-50.0); MEAN CORPUSCULAR HEMOGLOBIN 31.9 pg (28.0-32.0); MEAN CORPUSCULAR VOLUME 97.6 fL (81.0-99.0); MEAN PLATELET VOLUME 8.6 fl (7.4-10.4); MONOCYTES % 9.9 % (2.0-8.0); NEUTROPHILS % 67.9 % (40.0-76.0); PLATELET 147 x1000/uL (130-400); RED CELL DISTRIBUTION WIDTH 16.5 % (11.6-14.6)
[2020-11-15] MEDS: LEVOTHYROXINE SODIUM 25MCG TABLET PO SCH (07:08)
[2020-11-15] MEDS: SEVELAMER CARBONATE 800 MG TABLET PO SCH ×3 (07:09→17:23)
[2020-11-15 08:00] VITALS: BP 164/61
[2020-11-15] MEDS: PREGABALIN 75MG CAPSULE PO SCH ×2 (09:48→20:16)
[2020-11-15] MEDS: CINACALCET HCL 30MG TABLET PO SCH (09:48)
[2020-11-15] MEDS: DOCUSATE SODIUM 100MG CAPSULE PO PRN (09:49)
[2020-11-15] MEDS: CLONIDINE 0.1MG TABLET PO PRN (09:49)
[2020-11-15] MEDS: HYDROCODONE/ACETAMINOPHEN 10/325MG TABLET PO PRN ×2 (09:49→17:27)
[2020-11-15] MEDS: DOCUSATE SODIUM SUGAR FREE 100MG/10ML UDC PO SCH (09:49)
[2020-11-15] MEDS: LIDOCAINE 5% PATCH TOP SCH ×2 (09:51)
[2020-11-15 12:00] VITALS: BP 159/52
[2020-11-15 16:00] VITALS: BP 144/63
[2020-11-15 20:00] VITALS: BP 162/76
[2020-11-15] MEDS: FAMOTIDINE 20MG TABLET PO SCH (20:16)
[2020-11-16] VITALS: BP 144/38
[2020-11-16 04:00] VITALS: BP 144/75
[2020-11-16] MEDS: LEVOTHYROXINE SODIUM 25MCG TABLET PO SCH (05:58)
[2020-11-16 08:00] VITALS: BP 149/70
[2020-11-16] MEDS: LIDOCAINE 5% PATCH TOP SCH ×2 (09:03)
[2020-11-16] MEDS: PREGABALIN 75MG CAPSULE PO SCH ×2 (09:04→20:38)
[2020-11-16] MEDS: DOCUSATE SODIUM SUGAR FREE 100MG/10ML UDC PO SCH (09:04)
[2020-11-16] MEDS: SEVELAMER CARBONATE 800 MG TABLET PO SCH ×3 (09:04→16:55)
[2020-11-16] MEDS: CINACALCET HCL 60MG TABLET PO SCH (09:04)
[2020-11-16] MEDS: ACETAMINOPHEN 325MG TABLET PO PRN (10:49)
[2020-11-16 12:00] VITALS: BP 144/85
[2020-11-16 16:00] VITALS: BP 131/66
[2020-11-16 20:00] VITALS: BP 163/85
[2020-11-16] MEDS: FAMOTIDINE 20MG TABLET PO SCH (20:38)
[2020-11-17] VITALS: BP 167/83
[2020-11-17] MEDS: CLONIDINE 0.1MG TABLET PO PRN (02:53)
[2020-11-17] MEDS: LEVOTHYROXINE SODIUM 25MCG TABLET PO SCH (06:38)
[2020-11-17] MEDS: SEVELAMER CARBONATE 800 MG TABLET PO SCH ×3 (06:39→16:25)
[2020-11-17 08:00] VITALS: BP 127/64
[2020-11-17] MEDS: DOCUSATE SODIUM SUGAR FREE 100MG/10ML UDC PO SCH (09:18)
[2020-11-17] MEDS: CINACALCET HCL 60MG TABLET PO SCH (09:18)
[2020-11-17] MEDS: PREGABALIN 75MG CAPSULE PO SCH ×2 (09:18→21:22)
[2020-11-17] MEDS: LIDOCAINE 5% PATCH TOP SCH ×2 (09:19→09:20)
[2020-11-17 12:00] VITALS: BP 144/79
[2020-11-17] MEDS ORDERED: LIDO700A30 TOP (12:10)
[2020-11-17] MEDS ORDERED: LIDOCAINE HCL 1% 20ML VIAL (Pyxis) INJ INFIL NR (14:00)
[2020-11-17] MEDS ORDERED: BUPIVACAINE HCL/PF 0.25% (2.5MG/ML) 10ML INFIL NR (14:00)
[2020-11-17] MEDS ORDERED: ETHYL CHLORIDE CAN TOP NR (14:00)
[2020-11-17] MEDS ORDERED: TRIAMCINOLONE ACETONIDE 40MG/ML 1ML VIAL IM NR (14:00)
[2020-11-17 16:00] VITALS: BP 150/77
[2020-11-17 20:00] VITALS: BP_SYST 140; BP_SYST 145; BP_DIAS 76
[2020-11-17] MEDS: FAMOTIDINE 20MG TABLET PO SCH (21:22)
[2020-11-18] VITALS: BP 156/88
[2020-11-18 04:00] VITALS: BP 159/79
[2020-11-18] MEDS: SEVELAMER CARBONATE 800 MG TABLET PO SCH ×3 (06:25→17:39)
[2020-11-18] MEDS: LEVOTHYROXINE SODIUM 25MCG TABLET PO SCH (06:25)
[2020-11-18 08:00] VITALS: BP_SYST 121; BP_SYST 145; BP_DIAS 65; BP_DIAS 75
[2020-11-18] MEDS: LIDOCAINE 5% PATCH TOP SCH ×2 (10:33)
[2020-11-18] MEDS: CINACALCET HCL 60MG TABLET PO SCH (10:33)
[2020-11-18] MEDS: PREGABALIN 75MG CAPSULE PO SCH ×2 (10:33→21:42)
[2020-11-18] MEDS: DOCUSATE SODIUM SUGAR FREE 100MG/10ML UDC PO SCH (10:39)
[2020-11-18 12:00] VITALS: BP 145/75
[2020-11-18 16:00] VITALS: BP 170/80
[2020-11-18] MEDS: DEXAMETHASONE 4MG/ML 1ML VIAL IV SCH ×2 (17:40→23:17)
[2020-11-18 20:00] VITALS: BP 122/75
[2020-11-18] MEDS: FAMOTIDINE 20MG TABLET PO SCH (21:42)
[2020-11-19] VITALS (7 sets, daily range): BP systolic 120–157; BP diastolic 42–86
[2020-11-19] MEDS: LEVOTHYROXINE SODIUM 25MCG TABLET PO SCH (06:25)
[2020-11-19] MEDS: DEXAMETHASONE 4MG/ML 1ML VIAL IV SCH ×3 (06:25→18:00)
[2020-11-19 08:03] LABS: BASOPHILS % 0.4 % (0.0-2.0); HEMATOCRIT. 35.4 % (36.0-48.0); HEMOGLOBIN. 11.5 g/dL (12.0-16.0); MEAN CORPUSCULAR HEMOGLOBIN 31.1 pg (28.0-32.0); MEAN CORPUSCULAR VOLUME 95.8 fL (81.0-99.0); MEAN PLATELET VOLUME 9.6 fl (7.4-10.4); MONOCYTES % 7.2 % (2.0-8.0); NEUTROPHILS % 83.4 % (40.0-76.0); PLATELET 166 x1000/uL (130-400); RED CELL DISTRIBUTION WIDTH 15.8 % (11.6-14.6)
[2020-11-19 08:08] LABS: CHLORIDE 103 mEq/L (98-107)
[2020-11-19] MEDS: DOCUSATE SODIUM SUGAR FREE 100MG/10ML UDC PO SCH (09:33)
[2020-11-19] MEDS: SEVELAMER CARBONATE 800 MG TABLET PO SCH ×3 (09:33→17:15)
[2020-11-19] MEDS: PREGABALIN 75MG CAPSULE PO SCH ×2 (09:34→20:22)
[2020-11-19] MEDS: LIDOCAINE 5% PATCH TOP SCH ×2 (09:34→09:35)
[2020-11-19] MEDS: CINACALCET HCL 60MG TABLET PO SCH (09:34)
[2020-11-19] MEDS: FAMOTIDINE 20MG TABLET PO SCH (20:23)
[2020-11-19] MEDS: CLONIDINE 0.1MG TABLET PO PRN ×2 (20:36→20:37)
== END 2020-11-19 22:01 | DRG 553 ==
LOC: ER 13:35 → 7WST 18:30 → EDBEDREQ 18:33 → EDBEDREQTM 18:33 → ENRESERV 20:14 → 5WST 11-13 00:35
PROVIDERS: ADMIT Internal Medicine; ATTEND Internal Medicine
PROC: 5A1D70Z Performance of Urinary Filtration, Intermittent, Less than 6 Hours Per Day (ICD-10-PCS; principal; 2020-11-11)
PROC: 5A1D70Z Performance of Urinary Filtration, Intermittent, Less than 6 Hours Per Day (ICD-10-PCS; 2020-11-14)
PROC: 5A1D70Z Performance of Urinary Filtration, Intermittent, Less than 6 Hours Per Day (ICD-10-PCS; 2020-11-16)
PROC: 5A1D70Z Performance of Urinary Filtration, Intermittent, Less than 6 Hours Per Day (ICD-10-PCS; 2020-11-18)
DX: M16.0 Bilateral primary osteoarthritis of hip (principal); I50.33 Acute on chronic diastolic (congestive) heart failure; N18.6 End stage renal disease; I13.2 Hypertensive heart and chronic kidney disease with heart failure and with stage 5 chronic kidney disease, or end stage renal disease; N25.81 Secondary hyperparathyroidism of renal origin; C34.90 Malignant neoplasm of unspecified part of unspecified bronchus or lung; C79.51 Secondary malignant neoplasm of bone; G82.20 Paraplegia, unspecified; G95.20 Unspecified cord compression; I42.9 Cardiomyopathy, unspecified; M17.0 Bilateral primary osteoarthritis of knee; J44.9 Chronic obstructive pulmonary disease, unspecified; I95.3 Hypotension of hemodialysis; E66.9 Obesity, unspecified; G47.33 Obstructive sleep apnea (adult) (pediatric); D64.9 Anemia, unspecified; M79.651 Pain in right thigh; M79.652 Pain in left thigh; E66.01 Morbid (severe) obesity due to excess calories; E87.5 Hyperkalemia; I25.10 Atherosclerotic heart disease of native coronary artery without angina pectoris; I27.20 Pulmonary hypertension, unspecified; M54.30 Sciatica, unspecified side; M50.30 Other cervical disc degeneration, unspecified cervical region; E03.9 Hypothyroidism, unspecified; G89.29 Other chronic pain; M54.9 Dorsalgia, unspecified; M48.061 Spinal stenosis, lumbar region without neurogenic claudication; M54.16 Radiculopathy, lumbar region; Z85.118 Personal history of other malignant neoplasm of bronchus and lung; Z99.2 Dependence on renal dialysis; Z99.81 Dependence on supplemental oxygen; Z82.49 Family history of ischemic heart disease and other diseases of the circulatory system; Z79.899 Other long term (current) drug therapy; Z68.28 Body mass index [BMI] 28.0-28.9, adult; Z98.890 Other specified postprocedural states; D43.4 Neoplasm of uncertain behavior of spinal cord
CPT/HCPCS: 36415; 36598; 71045; 72100; 72141; 72146; 72148; 73522; 73560; 80048; 80053; 83605; 83880; 84484; 85025; 86850; 86900; 87426; 93005; 93306; 93970; 97162; 97530; 99285; J0456; J0696; J1100; J2270; J2405; J3301; J3490; J7030; J7060; Q9967; U0003

== ENCOUNTER 2020-11-19 21:20 | Inpatient (IN) | payer MEDICARE, MEDICAID ==
[~2020-11-19] VITALS: Ht 165.1 cm; Wt 77.1 kg
[2020-11-19 21:20] VITALS: BP 152/79
[~2020-11-19 21:20] MED LIST changes: -AMLO10TA80 PO; -CEFT2FRO5 IV; +HYDR-4009 MT; -HYDR-4348 MT; -HYDR-4350 MT; -HYDR100T26 PO; +LIDO700A30 TOP; -LOSA100T32 PO
[2020-11-19] MEDS ORDERED: ACETAMINOPHEN 325MG TABLET PO PRN (23:30)
[2020-11-19] MEDS ORDERED: *PATIENT'S OWN MEDICATION STORAGE XX SCH (23:45)
[2020-11-20] MEDS ORDERED: ONDANSETRON HCL 4MG/2ML INJ IV PRN
[2020-11-20] MEDS ORDERED: IPRATROPIUM/ALBUTEROL 0.5-3(2.5)MG/3ML NEB HHN PRN
[2020-11-20] MEDS: DEXAMETHASONE 4MG/ML 1ML VIAL IV SCH ×4 (00:37→18:50)
[2020-11-20] MEDS: DOCUSATE SODIUM 100MG CAPSULE PO PRN (00:37)
[2020-11-20] MEDS: LEVOTHYROXINE SODIUM 25MCG TABLET PO SCH (06:05)
[2020-11-20 07:59] VITALS: BP 150/54
[2020-11-20 08:28] LABS: BASOPHILS % 0.2 % (0.0-2.0); HEMATOCRIT. 34.9 % (36.0-48.0); HEMOGLOBIN. 11.4 g/dL (12.0-16.0); LYMPHOCYTES % 8.2 % (20.0-50.0); MEAN CORPUSCULAR HEMOGLOBIN 31.4 pg (28.0-32.0); MEAN CORPUSCULAR VOLUME 96.4 fL (81.0-99.0); MEAN PLATELET VOLUME 9.8 fl (7.4-10.4); MONOCYTES % 4.8 % (2.0-8.0); NEUTROPHILS % 86.8 % (40.0-76.0); PLATELET 164 x1000/uL (130-400); RED BLOOD CELL COUNT 3.61 mill/uL (4.2-5.4); RED CELL DISTRIBUTION WIDTH 16.1 % (11.6-14.6)
[2020-11-20 08:40] LABS: CHLORIDE 101 mEq/L (98-107)
[2020-11-20] MEDS: SEVELAMER CARBONATE 800 MG TABLET PO SCH ×3 (09:54→17:48)
[2020-11-20] MEDS: PREGABALIN 75MG CAPSULE PO SCH ×2 (09:56→21:52)
[2020-11-20] MEDS: LIDOCAINE 5% PATCH TOP SCH ×2 (10:02)
[2020-11-20] MEDS: DOCUSATE SODIUM SUGAR FREE 100MG/10ML UDC PO SCH (10:03)
[2020-11-20] MEDS: CINACALCET HCL 60MG TABLET PO SCH (10:03)
[2020-11-20] MEDS: CLONIDINE 0.1MG TABLET PO PRN (15:35)
[2020-11-20 20:00] VITALS: BP 137/51
[2020-11-20] MEDS: FAMOTIDINE 20MG TABLET PO SCH (21:52)
[2020-11-21] MEDS: DEXAMETHASONE 4MG/ML 1ML VIAL IV SCH ×4 (00:29→17:39)
[2020-11-21] MEDS: LEVOTHYROXINE SODIUM 25MCG TABLET PO SCH (05:58)
[2020-11-21] MEDS ORDERED: BACITRACIN 50,000 UNITS/VIAL ONE (06:19)
[2020-11-21] MEDS ORDERED: THROMBIN (BOVINE) 5000 UNITS/VIAL TOP ONE (06:20)
[2020-11-21 07:13] LABS: BASOPHILS % 0.1 % (0.0-2.0); HEMATOCRIT. 36.7 % (36.0-48.0); LYMPHOCYTES % 9.3 % (20.0-50.0); MEAN CORPUSCULAR HEMOGLOBIN 30.8 pg (28.0-32.0); MEAN CORPUSCULAR VOLUME 94.6 fL (81.0-99.0); MEAN PLATELET VOLUME 9.8 fl (7.4-10.4); MONOCYTES % 11.7 % (2.0-8.0); NEUTROPHILS % 78.9 % (40.0-76.0); PLATELET 168 x1000/uL (130-400); RED BLOOD CELL COUNT 3.88 mill/uL (4.2-5.4); RED CELL DISTRIBUTION WIDTH 16.1 % (11.6-14.6)
[2020-11-21 07:19] LABS: CHLORIDE 105 mEq/L (98-107)
[2020-11-21 07:27] LABS: TOTAL IRON BINDING CAPACITY 242 ug/dL (250-450)
[2020-11-21 07:28] LABS: PHOSPHORUS 4.8 mg/dL (2.5-4.9)
[2020-11-21 07:49] LABS: FOLIC ACID (FOLATE) SERUM 4.6 ng/mL (>5.38)
[2020-11-21 08:00] VITALS: BP 163/71
[2020-11-21] MEDS: SEVELAMER CARBONATE 800 MG TABLET PO SCH ×3 (08:40→17:39)
[2020-11-21] MEDS: LIDOCAINE 5% PATCH TOP SCH ×2 (08:52→08:58)
[2020-11-21] MEDS: PREGABALIN 75MG CAPSULE PO SCH ×2 (09:04→21:51)
[2020-11-21] MEDS: DOCUSATE SODIUM SUGAR FREE 100MG/10ML UDC PO SCH (09:04)
[2020-11-21] MEDS: CINACALCET HCL 60MG TABLET PO SCH (09:08)
[2020-11-21] MEDS: LOSARTAN POTASSIUM 25 MG TABLET PO SCH (12:05)
[2020-11-21] MEDS: HYDROCODONE/ACETAMINOPHEN 5/325MG TABLET PO PRN (13:06)
[2020-11-21] MEDS: FOLIC ACID 1MG TABLET PO SCH (17:50)
[2020-11-21 20:00] VITALS: BP 154/70
[2020-11-21] MEDS: FAMOTIDINE 20MG TABLET PO SCH (21:51)
[2020-11-22] MEDS: DEXAMETHASONE 4MG/ML 1ML VIAL IV SCH ×4 (01:49→17:30)
[2020-11-22] MEDS: LEVOTHYROXINE SODIUM 25MCG TABLET PO SCH (06:21)
[2020-11-22 07:32] LABS: HEMATOCRIT. 34.5 % (36.0-48.0); HEMOGLOBIN. 11.3 g/dL (12.0-16.0); MEAN CORPUSCULAR HEMOGLOBIN 31.2 pg (28.0-32.0); MEAN CORPUSCULAR VOLUME 95.2 fL (81.0-99.0); MEAN PLATELET VOLUME 9.1 fl (7.4-10.4); PLATELET 152 x1000/uL (130-400); RED BLOOD CELL COUNT 3.63 mill/uL (4.2-5.4); RED CELL DISTRIBUTION WIDTH 15.7 % (11.6-14.6)
[2020-11-22] MEDS: ACETAMINOPHEN 325MG TABLET PO PRN ×2 (07:40→13:07)
[2020-11-22 08:26] VITALS: BP 104/32
[2020-11-22] MEDS: LOSARTAN POTASSIUM 25 MG TABLET PO SCH (09:00)
[2020-11-22] MEDS: DOCUSATE SODIUM SUGAR FREE 100MG/10ML UDC PO SCH (09:00)
[2020-11-22] MEDS: CINACALCET HCL 60MG TABLET PO SCH (09:27)
[2020-11-22] MEDS: PREGABALIN 75MG CAPSULE PO SCH ×2 (09:27→20:42)
[2020-11-22] MEDS: DOCUSATE SODIUM 100MG CAPSULE PO PRN (09:27)
[2020-11-22] MEDS: FOLIC ACID 1MG TABLET PO SCH (09:27)
[2020-11-22] MEDS: SEVELAMER CARBONATE 800 MG TABLET PO SCH ×3 (09:27→17:29)
[2020-11-22] MEDS: LIDOCAINE 5% PATCH TOP SCH ×2 (09:32→09:46)
[2020-11-22 11:19] LABS: PLATELET ESTIMATE NORMAL
[2020-11-22 19:23] LABS: T4 FREE 4.04 ng/dL (0.76-1.46)
[2020-11-22 20:00] VITALS: BP 116/60
[2020-11-22] MEDS: FAMOTIDINE 20MG TABLET PO SCH (20:42)
[2020-11-22] MEDS ORDERED: CEFEPIME 2,000 MG in DEXT 5% WATER 100 ML IV SCH (21:00)
[2020-11-22] MEDS ORDERED: VANCOMYCIN 1500MG in DEXTROSE 5% WATER 250ML IV NR (22:00)
[2020-11-23] MEDS: DEXAMETHASONE 4MG/ML 1ML VIAL IV SCH ×5 (00:26→23:30)
[2020-11-23] MEDS: LEVOTHYROXINE SODIUM 25MCG TABLET PO SCH (06:57)
[2020-11-23 08:00] VITALS: BP 146/58
[2020-11-23] MEDS: DOCUSATE SODIUM SUGAR FREE 100MG/10ML UDC PO SCH (09:00)
[2020-11-23] MEDS: CINACALCET HCL 60MG TABLET PO SCH (09:42)
[2020-11-23] MEDS: FOLIC ACID 1MG TABLET PO SCH (09:42)
[2020-11-23] MEDS: SEVELAMER CARBONATE 800 MG TABLET PO SCH ×3 (09:42→18:00)
[2020-11-23] MEDS: PREGABALIN 75MG CAPSULE PO SCH ×2 (09:42→22:45)
[2020-11-23] MEDS: LIDOCAINE 5% PATCH TOP SCH ×2 (09:44)
[2020-11-23] MEDS: HYDROCODONE/ACETAMINOPHEN 5/325MG TABLET PO PRN (09:52)
[2020-11-23] MEDS: LOSARTAN POTASSIUM 25 MG TABLET PO SCH (09:52)
[2020-11-23] MEDS: LINEZOLID 600 MG PREMIX 300 ML IV SCH (15:38)
[2020-11-23] MEDS ORDERED: VANCOMYCIN 500 MG PREMIX 100 ML IV NR (17:00)
[2020-11-23 20:00] VITALS: BP 153/65
[2020-11-23] MEDS: FAMOTIDINE 20MG TABLET PO SCH (22:45)
[2020-11-23] MEDS: ACETAMINOPHEN 325MG TABLET PO PRN (22:46)
[2020-11-24] MEDS: LINEZOLID 600 MG PREMIX 300 ML IV SCH ×2 (01:01→13:00)
[2020-11-24 04:09] LABS: FOLICLE STIMULATING HORMONE 39.4 mIU/mL (.); LUTEINIZING HORMONE 19.9 mIU/mL (.)
[2020-11-24] MEDS: DEXAMETHASONE 4MG/ML 1ML VIAL IV SCH ×4 (05:47→18:29)
[2020-11-24] MEDS: ACETAMINOPHEN 325MG TABLET PO PRN (05:48)
[2020-11-24] MEDS: CLONIDINE 0.1MG TABLET PO PRN (05:48)
[2020-11-24 07:22] LABS: HEMATOCRIT. 35.4 % (36.0-48.0); HEMOGLOBIN. 11.5 g/dL (12.0-16.0); MEAN CORPUSCULAR HEMOGLOBIN 31.3 pg (28.0-32.0); MEAN PLATELET VOLUME 9.8 fl (7.4-10.4); PLATELET 140 x1000/uL (130-400); RED BLOOD CELL COUNT 3.69 mill/uL (4.2-5.4); RED CELL DISTRIBUTION WIDTH 15.9 % (11.6-14.6)
[2020-11-24 08:00] VITALS: BP 158/69
[2020-11-24] MEDS: DOCUSATE SODIUM SUGAR FREE 100MG/10ML UDC PO SCH ×2 (09:00→09:34)
[2020-11-24] MEDS: LIDOCAINE 5% PATCH TOP SCH ×2 (09:31→09:33)
[2020-11-24] MEDS: FOLIC ACID 1MG TABLET PO SCH (09:33)
[2020-11-24] MEDS: PREGABALIN 75MG CAPSULE PO SCH ×2 (09:33→21:08)
[2020-11-24] MEDS: CINACALCET HCL 60MG TABLET PO SCH (09:33)
[2020-11-24] MEDS: LOSARTAN POTASSIUM 25 MG TABLET PO SCH (09:33)
[2020-11-24] MEDS: SEVELAMER CARBONATE 800 MG TABLET PO SCH ×3 (09:33→17:49)
[2020-11-24] MEDS: LIDOCAINE HCL 4% CREAM 76GM TUBE TP SCH ×2 (12:05→17:51)
[2020-11-24 12:50] LABS: PLATELET ESTIMATE NORMAL
[2020-11-24 20:00] VITALS: BP 148/62
[2020-11-24] MEDS: FAMOTIDINE 20MG TABLET PO SCH (21:07)
[2020-11-25] MEDS: DEXAMETHASONE 4MG/ML 1ML VIAL IV SCH ×4 (00:35→17:16)
[2020-11-25] MEDS: LIDOCAINE HCL 4% CREAM 76GM TUBE TP SCH ×4 (00:35→17:17)
[2020-11-25] MEDS: LINEZOLID 600 MG PREMIX 300 ML IV SCH (01:42)
[2020-11-25 07:08] LABS: 25-HYDROXY VITAMIN D3 7.4 ng/mL (.)
[2020-11-25 08:00] VITALS: BP 133/62
[2020-11-25] MEDS: DOCUSATE SODIUM SUGAR FREE 100MG/10ML UDC PO SCH (09:17)
[2020-11-25] MEDS: LIDOCAINE 5% PATCH TOP SCH ×2 (09:17→09:31)
[2020-11-25] MEDS: SEVELAMER CARBONATE 800 MG TABLET PO SCH ×3 (09:18→17:15)
[2020-11-25] MEDS: CINACALCET HCL 60MG TABLET PO SCH (09:18)
[2020-11-25] MEDS: FOLIC ACID 1MG TABLET PO SCH (09:18)
[2020-11-25] MEDS: LOSARTAN POTASSIUM 50 MG TABLET PO SCH (09:23)
[2020-11-25] MEDS: ACETAMINOPHEN 325MG TABLET PO PRN (12:27)
[2020-11-25] MEDS: PREGABALIN 75MG CAPSULE PO SCH ×2 (12:27→22:18)
[2020-11-25] MEDS: AMPICILLIN 2,000 MG in SODIUM CHLORIDE 0.9% 100 ML IV SCH (12:54)
[2020-11-25 21:46] VITALS: BP 155/52
[2020-11-25] MEDS: FAMOTIDINE 20MG TABLET PO SCH (22:18)
[2020-11-26] MEDS: AMPICILLIN 2,000 MG in SODIUM CHLORIDE 0.9% 100 ML IV SCH ×3 (01:37→23:29)
[2020-11-26] MEDS: LIDOCAINE HCL 4% CREAM 76GM TUBE TP SCH ×5 (06:00→23:30)
[2020-11-26 06:29] LABS: HEMATOCRIT. 33.9 % (36.0-48.0); HEMOGLOBIN. 11.2 g/dL (12.0-16.0); MEAN CORPUSCULAR HEMOGLOBIN 31.5 pg (28.0-32.0); MEAN CORPUSCULAR VOLUME 95.4 fL (81.0-99.0); PLATELET 128 x1000/uL (130-400); RED BLOOD CELL COUNT 3.55 mill/uL (4.2-5.4); RED CELL DISTRIBUTION WIDTH 16.1 % (11.6-14.6)
[2020-11-26 08:22] VITALS: BP 162/60
[2020-11-26] MEDS: CINACALCET HCL 60MG TABLET PO SCH (08:24)
[2020-11-26] MEDS: PREGABALIN 75MG CAPSULE PO SCH ×2 (08:24→20:30)
[2020-11-26] MEDS: LOSARTAN POTASSIUM 50 MG TABLET PO SCH (08:24)
[2020-11-26] MEDS: SEVELAMER CARBONATE 800 MG TABLET PO SCH ×3 (08:24→16:57)
[2020-11-26] MEDS: FOLIC ACID 1MG TABLET PO SCH (08:24)
[2020-11-26] MEDS: LIDOCAINE 5% PATCH TOP SCH ×2 (08:24→08:25)
[2020-11-26] MEDS: DOCUSATE SODIUM SUGAR FREE 100MG/10ML UDC PO SCH (08:27)
[2020-11-26] MEDS: HYDROCODONE/ACETAMINOPHEN 5/325MG TABLET PO PRN (10:08)
[2020-11-26] MEDS ORDERED: ERGOCALCIFEROL 50000UNITS CAPSULE PO SCH (12:00)
[2020-11-26] MEDS ORDERED: SODIUM CHLORIDE 0.9% 1,000 ML IV SCH (12:15)
[2020-11-26 13:20] LABS: PLATELET ESTIMATE NORMAL
[2020-11-26 20:00] VITALS: BP 124/28
[2020-11-26] MEDS: FAMOTIDINE 20MG TABLET PO SCH (20:30)
[2020-11-26 20:55] VITALS: BP 123/30
[2020-11-27 02:17] VITALS: BP 125/61
[2020-11-27] MEDS: ACETAMINOPHEN 325MG TABLET PO PRN (02:18)
[2020-11-27] MEDS: LIDOCAINE HCL 4% CREAM 76GM TUBE TP SCH ×3 (06:26→17:07)
[2020-11-27 06:54] LABS: BASOPHILS % 0.1 % (0.0-2.0); EOSINOPHILS % 3.6 % (0.0-5.0); HEMATOCRIT. 33.3 % (36.0-48.0); HEMOGLOBIN. 10.6 g/dL (12.0-16.0); LYMPHOCYTES % 13.5 % (20.0-50.0); MEAN CORPUSCULAR HEMOGLOBIN 30.7 pg (28.0-32.0); MEAN CORPUSCULAR VOLUME 96.3 fL (81.0-99.0); MEAN PLATELET VOLUME 9.8 fl (7.4-10.4); MONOCYTES % 13.2 % (2.0-8.0); NEUTROPHILS % 69.6 % (40.0-76.0); PLATELET 131 x1000/uL (130-400); RED BLOOD CELL COUNT 3.46 mill/uL (4.2-5.4); RED CELL DISTRIBUTION WIDTH 16.1 % (11.6-14.6)
[2020-11-27 07:59] VITALS: BP 129/62
[2020-11-27] MEDS: LOSARTAN POTASSIUM 50 MG TABLET PO SCH (08:30)
[2020-11-27] MEDS: PREGABALIN 75MG CAPSULE PO SCH ×2 (08:30→21:09)
[2020-11-27] MEDS: SEVELAMER CARBONATE 800 MG TABLET PO SCH ×3 (08:30→16:40)
[2020-11-27] MEDS: FOLIC ACID 1MG TABLET PO SCH (08:30)
[2020-11-27] MEDS: CINACALCET HCL 60MG TABLET PO SCH (08:30)
[2020-11-27] MEDS: LIDOCAINE 5% PATCH TOP SCH ×2 (08:31→08:32)
[2020-11-27] MEDS: LACTOBACILLUS GG CAPSULE PO SCH (09:48)
[2020-11-27] MEDS: AMPICILLIN 2,000 MG in SODIUM CHLORIDE 0.9% 100 ML IV SCH (12:00)
[2020-11-27 20:00] VITALS: BP 141/43
[2020-11-27] MEDS: FAMOTIDINE 20MG TABLET PO SCH (21:09)
[2020-11-28] MEDS: LIDOCAINE HCL 4% CREAM 76GM TUBE TP SCH ×4 (00:12→17:50)
[2020-11-28 08:00] VITALS: BP 138/62
[2020-11-28] MEDS: FOLIC ACID 1MG TABLET PO SCH (08:50)
[2020-11-28] MEDS: SEVELAMER CARBONATE 800 MG TABLET PO SCH ×3 (08:50→17:50)
[2020-11-28] MEDS: LOSARTAN POTASSIUM 50 MG TABLET PO SCH (08:50)
[2020-11-28] MEDS: CINACALCET HCL 60MG TABLET PO SCH (08:50)
[2020-11-28] MEDS: LACTOBACILLUS GG CAPSULE PO SCH (08:50)
[2020-11-28] MEDS: PREGABALIN 75MG CAPSULE PO SCH ×2 (08:51→21:42)
[2020-11-28] MEDS: ACETAMINOPHEN 325MG TABLET PO PRN (08:51)
[2020-11-28] MEDS: LIDOCAINE 5% PATCH TOP SCH ×2 (08:52)
[2020-11-28] MEDS: HYDROCODONE/ACETAMINOPHEN 5/325MG TABLET PO PRN (10:22)
[2020-11-28] MEDS: AMPICILLIN 2,000 MG in SODIUM CHLORIDE 0.9% 100 ML IV SCH ×2 (12:57)
[2020-11-28 20:00] VITALS: BP 134/76
[2020-11-28] MEDS: FAMOTIDINE 20MG TABLET PO SCH (21:42)
[2020-11-29] VITALS (18 sets, daily range): BP systolic 140–163; BP diastolic 38–100
[2020-11-29] MEDS: LIDOCAINE HCL 4% CREAM 76GM TUBE TP SCH ×4 (06:00→18:11)
[2020-11-29] MEDS: LOSARTAN POTASSIUM 50 MG TABLET PO SCH ×2 (09:00→13:09)
[2020-11-29] MEDS: SEVELAMER CARBONATE 800 MG TABLET PO SCH ×3 (09:00→16:28)
[2020-11-29 09:45] LABS: BASOPHILS % 0.3 % (0.0-2.0); EOSINOPHILS % 3.8 % (0.0-5.0); HEMOGLOBIN. 10.4 g/dL (12.0-16.0); LYMPHOCYTES % 15.2 % (20.0-50.0); MEAN CORPUSCULAR HEMOGLOBIN 31.2 pg (28.0-32.0); MEAN CORPUSCULAR VOLUME 96.3 fL (81.0-99.0); MEAN PLATELET VOLUME 9.5 fl (7.4-10.4); MONOCYTES % 7.7 % (2.0-8.0); PLATELET 131 x1000/uL (130-400); RED BLOOD CELL COUNT 3.32 mill/uL (4.2-5.4); RED CELL DISTRIBUTION WIDTH 16.3 % (11.6-14.6)
[2020-11-29 09:53] LABS: CHLORIDE 106 mEq/L (98-107); INR 1.1; PROTHROMBIN TIME 11.8 sec (9.6-11.0)
[2020-11-29 10:02] LABS: T4 FREE 3.49 ng/dL (0.76-1.46)
[2020-11-29] MEDS ORDERED: LIDOCAINE HCL 1% 20ML VIAL (Pyxis) INJ ONE (11:00)
[2020-11-29] MEDS ORDERED: FENTANYL CITRATE/PF 50MCG/ML 2ML VIAL IV ONE (12:00)
[2020-11-29] MEDS ORDERED: FENTANYL CITRATE/PF 50MCG/ML 2ML VIAL ONE (12:03)
[2020-11-29] MEDS: CINACALCET HCL 60MG TABLET PO SCH (13:09)
[2020-11-29] MEDS: CLONIDINE 0.1MG TABLET PO PRN (13:09)
[2020-11-29] MEDS: FOLIC ACID 1MG TABLET PO SCH (13:10)
[2020-11-29] MEDS: LACTOBACILLUS GG CAPSULE PO SCH (13:10)
[2020-11-29] MEDS: PREGABALIN 75MG CAPSULE PO SCH ×2 (13:10→22:12)
[2020-11-29] MEDS: LIDOCAINE 5% PATCH TOP SCH ×2 (13:11)
[2020-11-29] MEDS: METHIMAZOLE 10MG TABLET PO SCH ×2 (13:20→16:28)
[2020-11-29] MEDS: AMPICILLIN 2,000 MG in SODIUM CHLORIDE 0.9% 100 ML IV SCH ×2 (13:20)
[2020-11-29] MEDS: FAMOTIDINE 20MG TABLET PO SCH (22:12)
[2020-11-30] MEDS: LIDOCAINE HCL 4% CREAM 76GM TUBE TP SCH ×4 (05:58→18:35)
[2020-11-30 07:47] VITALS: BP 144/72
[2020-11-30] MEDS: PREGABALIN 75MG CAPSULE PO SCH ×2 (09:52→21:12)
[2020-11-30] MEDS: FOLIC ACID 1MG TABLET PO SCH (09:52)
[2020-11-30] MEDS: CINACALCET HCL 60MG TABLET PO SCH (09:52)
[2020-11-30] MEDS: LACTOBACILLUS GG CAPSULE PO SCH (09:52)
[2020-11-30] MEDS: METHIMAZOLE 10MG TABLET PO SCH ×3 (09:52→16:54)
[2020-11-30] MEDS: SEVELAMER CARBONATE 800 MG TABLET PO SCH ×3 (09:53→16:54)
[2020-11-30] MEDS: LOSARTAN POTASSIUM 50 MG TABLET PO SCH (09:54)
[2020-11-30] MEDS: LIDOCAINE 5% PATCH TOP SCH ×2 (09:55→09:56)
[2020-11-30 12:13] VITALS: BP 144/72
[2020-11-30] MEDS: AMPICILLIN 2,000 MG in SODIUM CHLORIDE 0.9% 100 ML IV SCH ×3 (12:44→23:29)
[2020-11-30] MEDS: HYDROCODONE/ACETAMINOPHEN 5/325MG TABLET PO PRN (12:56)
[2020-11-30 20:00] VITALS: BP 132/71
[2020-11-30] MEDS: FAMOTIDINE 20MG TABLET PO SCH (21:13)
[2020-12-01] MEDS: LIDOCAINE HCL 4% CREAM 76GM TUBE TP SCH ×5 (06:13→23:23)
[2020-12-01 07:08] LABS: BASOPHILS % 0.3 % (0.0-2.0); EOSINOPHILS % 1.3 % (0.0-5.0); HEMATOCRIT. 28.8 % (36.0-48.0); HEMOGLOBIN. 9.6 g/dL (12.0-16.0); LYMPHOCYTES % 12.5 % (20.0-50.0); MEAN CORPUSCULAR HEMOGLOBIN 31.6 pg (28.0-32.0); MEAN CORPUSCULAR VOLUME 94.6 fL (81.0-99.0); MEAN PLATELET VOLUME 9.4 fl (7.4-10.4); MONOCYTES % 8.3 % (2.0-8.0); NEUTROPHILS % 77.6 % (40.0-76.0); PLATELET 121 x1000/uL (130-400); RED BLOOD CELL COUNT 3.05 mill/uL (4.2-5.4); RED CELL DISTRIBUTION WIDTH 16.2 % (11.6-14.6)
[2020-12-01 08:30] VITALS: BP 120/37
[2020-12-01] MEDS: LACTOBACILLUS GG CAPSULE PO SCH (09:38)
[2020-12-01] MEDS: FOLIC ACID 1MG TABLET PO SCH (09:38)
[2020-12-01] MEDS: METHIMAZOLE 10MG TABLET PO SCH ×3 (09:38→17:36)
[2020-12-01] MEDS: LOSARTAN POTASSIUM 50 MG TABLET PO SCH (09:38)
[2020-12-01] MEDS: SEVELAMER CARBONATE 800 MG TABLET PO SCH ×3 (09:38→17:36)
[2020-12-01] MEDS: CINACALCET HCL 60MG TABLET PO SCH (09:38)
[2020-12-01] MEDS: PREGABALIN 75MG CAPSULE PO SCH ×2 (09:39→21:19)
[2020-12-01] MEDS: LIDOCAINE 5% PATCH TOP SCH ×2 (09:43→09:44)
[2020-12-01] MEDS: AMPICILLIN 2,000 MG in SODIUM CHLORIDE 0.9% 100 ML IV SCH ×2 (12:58→23:23)
[2020-12-01 20:00] VITALS: BP 127/72
[2020-12-01] MEDS ORDERED: EPOETIN ALFA-EPBX 4,000 UNIT/ML VIAL SUBCUT SCH (21:00)
[2020-12-01] MEDS: FAMOTIDINE 20MG TABLET PO SCH (21:19)
[2020-12-02] MEDS: LIDOCAINE HCL 4% CREAM 76GM TUBE TP SCH ×2 (06:17→13:47)
[2020-12-02 07:54] VITALS: BP 134/64
[2020-12-02] MEDS: SEVELAMER CARBONATE 800 MG TABLET PO SCH ×2 (08:40→13:47)
[2020-12-02] MEDS: FOLIC ACID 1MG TABLET PO SCH (08:40)
[2020-12-02] MEDS: LACTOBACILLUS GG CAPSULE PO SCH (08:40)
[2020-12-02] MEDS: CINACALCET HCL 60MG TABLET PO SCH (08:40)
[2020-12-02] MEDS: METHIMAZOLE 10MG TABLET PO SCH ×2 (08:40→13:47)
[2020-12-02] MEDS: PREGABALIN 75MG CAPSULE PO SCH (08:40)
[2020-12-02] MEDS: LIDOCAINE 5% PATCH TOP SCH ×2 (08:41)
[2020-12-02 09:31] VITALS: BP 134/64
[2020-12-02] MEDS ORDERED: LOSA50TA3 PO (10:40)
[2020-12-02] MEDS ORDERED: CINA30 PO (10:40)
[2020-12-02] MEDS ORDERED: HYDR-4009 MT (10:40)
[2020-12-02] MEDS ORDERED: TAP PO (10:40)
[2020-12-02 13:56] VITALS: BP 134/64
[2020-12-02] MEDS: HYDROCODONE/ACETAMINOPHEN 5/325MG TABLET PO PRN (13:56)
== END 2020-12-02 15:02 | disposition home health service (06) | DRG 54 ==
PROVIDERS: ADMIT Physical Medicine & Rehabilitation Spinal Cord Injury Medicine; ATTEND Internal Medicine
PROC: 5A1D70Z Performance of Urinary Filtration, Intermittent, Less than 6 Hours Per Day (ICD-10-PCS; 2020-11-20)
PROC: 5A1D70Z Performance of Urinary Filtration, Intermittent, Less than 6 Hours Per Day (ICD-10-PCS; 2020-11-21)
PROC: 5A1D70Z Performance of Urinary Filtration, Intermittent, Less than 6 Hours Per Day (ICD-10-PCS; 2020-11-23)
PROC: 5A1D70Z Performance of Urinary Filtration, Intermittent, Less than 6 Hours Per Day (ICD-10-PCS; 2020-11-25)
PROC: 0JPT0WZ Removal of Totally Implantable Vascular Access Device from Trunk Subcutaneous Tissue and Fascia, Open Approach (ICD-10-PCS; principal; 2020-11-29)
PROC: 02PYX3Z Removal of Infusion Device from Great Vessel, External Approach (ICD-10-PCS; 2020-11-29)
DX: C79.49 Secondary malignant neoplasm of other parts of nervous system (principal); N18.6 End stage renal disease; A41.81 Sepsis due to Enterococcus; C79.51 Secondary malignant neoplasm of bone; T80.211A Bloodstream infection due to central venous catheter, initial encounter; C34.90 Malignant neoplasm of unspecified part of unspecified bronchus or lung; C79.89 Secondary malignant neoplasm of other specified sites; G82.20 Paraplegia, unspecified; G95.20 Unspecified cord compression; I13.2 Hypertensive heart and chronic kidney disease with heart failure and with stage 5 chronic kidney disease, or end stage renal disease; I50.32 Chronic diastolic (congestive) heart failure; E66.01 Morbid (severe) obesity due to excess calories; E87.5 Hyperkalemia; G47.33 Obstructive sleep apnea (adult) (pediatric); I25.10 Atherosclerotic heart disease of native coronary artery without angina pectoris; I27.20 Pulmonary hypertension, unspecified; I50.9 Heart failure, unspecified; J44.9 Chronic obstructive pulmonary disease, unspecified; M16.0 Bilateral primary osteoarthritis of hip; M17.0 Bilateral primary osteoarthritis of knee; M54.30 Sciatica, unspecified side; Z20.822 Contact with and (suspected) exposure to COVID-19; R53.81 Other malaise; E53.8 Deficiency of other specified B group vitamins; E55.9 Vitamin D deficiency, unspecified; R51.9 Headache, unspecified; R19.7 Diarrhea, unspecified; E89.0 Postprocedural hypothyroidism; F39 Unspecified mood [affective] disorder; M50.90 Cervical disc disorder, unspecified, unspecified cervical region; D63.1 Anemia in chronic kidney disease; I08.1 Rheumatic disorders of both mitral and tricuspid valves; I27.21 Secondary pulmonary arterial hypertension; Y84.8 Other medical procedures as the cause of abnormal reaction of the patient, or of later complication, without mention of misadventure at the time of the procedure; Z82.49 Family history of ischemic heart disease and other diseases of the circulatory system; Z85.118 Personal history of other malignant neoplasm of bronchus and lung; Z91.81 History of falling; Z99.2 Dependence on renal dialysis; Z99.81 Dependence on supplemental oxygen; Z68.28 Body mass index [BMI] 28.0-28.9, adult; Z91.15 Patient's noncompliance with renal dialysis; Y92.89 Other specified places as the place of occurrence of the external cause
CPT/HCPCS: 36415; 36590; 70551; 71045; 77001; 80048; 80053; 80202; 82306; 82607; 82728; 82746; 82962; 83001; 83002; 83520; 83540; 83550; 83735; 84100; 84134; 84145; 84439; 84443; 84481; 85014; 85018; 85025; 87077; 87186; 87426; 88300; 93005; 93970; 97110; 97116; 97162; 97166; 97530; 97535; 99152; 99153; A6261; J0290; J0692; J0885; J1100; J2020; J3010; J3370; J3490; J7040; J7050; J7060; G0500

== ENCOUNTER 2021-05-08 22:30 | Inpatient (IN) | payer MEDICARE, MEDICAID ==
[~2021-05-08] VITALS: Ht 157.5 cm; Wt 72.1 kg
[2021-05-08 22:30] VITALS: BP 122/73
[~2021-05-08 22:30] MED LIST changes: -LEVO25TA7 PO; +LOSA50TA3 PO; +OXYC20TA56 PO; +REN800 PO; +TAP PO
[2021-05-09] MEDS ORDERED: NITROGLYCERIN 0.4MG TABLET SL SL PRN (00:15)
[2021-05-09] MEDS ORDERED: ONDANSETRON HCL 4MG TABLET PO PRN (00:15)
[2021-05-09] MEDS ORDERED: IPRATROPIUM/ALBUTEROL 0.5-3(2.5)MG/3ML NEB HHN PRN (00:15)
[2021-05-09] MEDS ORDERED: DIPHENHYDRAMINE 25MG CAPSULE PO PRN (00:15)
[2021-05-09] MEDS ORDERED: ACETAMINOPHEN 325MG TABLET PO PRN (00:15)
[2021-05-09] MEDS ORDERED: GUAIFENESIN 200MG/10ML SUGAR FREE UDC PO PRN (00:15)
[2021-05-09] MEDS ORDERED: CLONIDINE 0.1MG TABLET PO PRN (00:15)
[2021-05-09] MEDS ORDERED: OXYCODONE HCL 20MG TABLET SR 12HR PO PRN (02:00)
[2021-05-09] MEDS ORDERED: NA PHOS,M-B/NA PHOS,DI-BA ENEMA 118ML PR ONE (02:00)
[2021-05-09] MEDS: FAMOTIDINE 20MG TABLET PO SCH ×3 (06:23→22:17)
[2021-05-09 07:16] LABS: BASOPHILS % 0.7 % (0.0-2.0); EOSINOPHILS % 2.6 % (0.0-5.0); HEMATOCRIT. 24.5 % (36.0-48.0); HEMOGLOBIN. 8.2 g/dL (12.0-16.0); LYMPHOCYTES % 10.8 % (20.0-50.0); MEAN CORPUSCULAR VOLUME 95.8 fL (81.0-99.0); MEAN PLATELET VOLUME 9.3 fl (7.4-10.4); MONOCYTES % 6.5 % (2.0-8.0); NEUTROPHILS % 79.4 % (40.0-76.0); PLATELET 140 x1000/uL (130-400); RED BLOOD CELL COUNT 2.56 mill/uL (4.2-5.4); RED CELL DISTRIBUTION WIDTH 16.3 % (11.6-14.6)
[2021-05-09 07:28] LABS: CHLORIDE 105 mEq/L (98-107)
[2021-05-09] MEDS: ZINC SULFATE 220 MG ( 50 ) CAPSULE PO SCH (08:25)
[2021-05-09] MEDS: HYDROCODONE/ACETAMINOPHEN 10/325MG TABLET PO PRN (08:25)
[2021-05-09] MEDS: SEVELAMER CARBONATE 800 MG TABLET PO SCH ×3 (08:25→17:22)
[2021-05-09] MEDS: PREGABALIN 75MG CAPSULE PO SCH ×2 (08:26→22:16)
[2021-05-09] MEDS: ASCORBIC ACID 500 MG TABLET PO SCH ×2 (08:26→22:17)
[2021-05-09] MEDS: DOCUSATE SODIUM 100MG CAPSULE PO PRN (08:26)
[2021-05-09] MEDS: CINACALCET HCL 60MG TABLET PO SCH (08:26)
[2021-05-09] MEDS: CHOLECALCIFEROL (D3) 1000 UNIT TABLET PO SCH (08:26)
[2021-05-09 08:30] VITALS: BP 107/53
[2021-05-09] MEDS: LOSARTAN POTASSIUM 50 MG TABLET PO SCH (08:31)
[2021-05-09] MEDS: LIDOCAINE 5% PATCH TOP SCH (08:32)
[2021-05-09] MEDS: DOCUSATE SODIUM 250MG CAPSULE PO SCH (08:32)
[2021-05-09] MEDS ORDERED: ASCORBIC ACID 500 MG TABLET PO SCH (09:00)
[2021-05-09] MEDS ORDERED: CHOLECALCIFEROL (VIT D3) 400 UNIT TABLET PO SCH (09:00)
[2021-05-09 10:39] VITALS: BP 120/65
[2021-05-09] MEDS ORDERED: LIDOCAINE HCL/EPINEPHRINE 1%-EPI 1:100,000 20 ML VIAL INFIL NR (14:00)
[2021-05-09] MEDS ORDERED: LIDOCAINE HCL 2% JELLY 5ML TOP NR (14:00)
[2021-05-09] MEDS ORDERED: NALOXONE HCL 0.4MG/ML VIAL IV PRN (16:15)
[2021-05-09] MEDS ORDERED: NALOXONE HCL 0.4 MG/ML 1ML VIAL IV PRN (16:30)
[2021-05-09] MEDS ORDERED: MORPHINE SULFATE 2 MG/ML CPJ (NOT FOR IM USE) IV PRN (16:30)
[2021-05-09] MEDS: ACETAMINOPHEN 325MG TABLET PO PRN (17:22)
[2021-05-09 20:00] VITALS: BP 127/80
[2021-05-09] MEDS ORDERED: EPOETIN ALFA-EPBX 10,000 UNIT/ML VIAL SUBCUT SCH (21:00)
[2021-05-10] MEDS: HYDROCODONE/ACETAMINOPHEN 10/325MG TABLET PO PRN ×3 (04:24→18:40)
[2021-05-10 05:08] VITALS: BP 129/78
[2021-05-10 06:48] LABS: BASOPHILS % 0.3 % (0.0-2.0); EOSINOPHILS % 2.7 % (0.0-5.0); HEMATOCRIT. 23.7 % (36.0-48.0); HEMOGLOBIN. 7.9 g/dL (12.0-16.0); LYMPHOCYTES % 9.4 % (20.0-50.0); MEAN CORPUSCULAR HEMOGLOBIN 31.8 pg (28.0-32.0); MEAN CORPUSCULAR VOLUME 95.9 fL (81.0-99.0); MEAN PLATELET VOLUME 8.9 fl (7.4-10.4); MONOCYTES % 7.5 % (2.0-8.0); NEUTROPHILS % 80.1 % (40.0-76.0); PLATELET 148 x1000/uL (130-400); RED BLOOD CELL COUNT 2.48 mill/uL (4.2-5.4); RED CELL DISTRIBUTION WIDTH 16.1 % (11.6-14.6)
[2021-05-10 07:00] VITALS: BP 138/65
[2021-05-10 07:04] LABS: CHLORIDE 106 mEq/L (98-107)
[2021-05-10 07:22] LABS: FOLIC ACID (FOLATE) SERUM 2.4 ng/mL (>5.38)
[2021-05-10 07:31] LABS: TOTAL IRON BINDING CAPACITY 133 ug/dL (250-450)
[2021-05-10] MEDS: CINACALCET HCL 60MG TABLET PO SCH (08:17)
[2021-05-10] MEDS: ZINC SULFATE 220 MG ( 50 ) CAPSULE PO SCH (08:17)
[2021-05-10] MEDS: SEVELAMER CARBONATE 800 MG TABLET PO SCH ×3 (08:17→17:35)
[2021-05-10] MEDS: ASCORBIC ACID 500 MG TABLET PO SCH ×2 (08:17→21:27)
[2021-05-10] MEDS: DOCUSATE SODIUM 250MG CAPSULE PO SCH (08:17)
[2021-05-10] MEDS: LOSARTAN POTASSIUM 50 MG TABLET PO SCH (08:17)
[2021-05-10] MEDS: PREGABALIN 75MG CAPSULE PO SCH ×2 (08:17→21:27)
[2021-05-10] MEDS: CHOLECALCIFEROL (D3) 1000 UNIT TABLET PO SCH (08:18)
[2021-05-10] MEDS: LIDOCAINE 5% PATCH TOP SCH (08:18)
[2021-05-10] MEDS ORDERED: LIDOCAINE HCL 2% JELLY 5ML TOP NR (10:00)
[2021-05-10] MEDS ORDERED: LIDOCAINE HCL/EPINEPHRINE 1%-EPI 1:100,000 20 ML VIAL INFIL NR (10:00)
[2021-05-10] MEDS: ERGOCALCIFEROL 50000UNITS CAPSULE PO SCH (14:59)
[2021-05-10] MEDS: FOLIC ACID 1MG TABLET PO SCH (14:59)
[2021-05-10] MEDS: CYANOCOBALAMIN 1000MCG/ML VIAL IM SCH (14:59)
[2021-05-10] MEDS: [UNRECOGNIZED DRUG - REMARK] TOP SCH (17:00)
[2021-05-10 18:42] VITALS: BP 135/61
[2021-05-10] MEDS: EPOETIN ALFA-EPBX 10,000 UNIT/ML VIAL SUBCUT SCH (21:27)
[2021-05-11] MEDS: FAMOTIDINE 20MG TABLET PO SCH (06:04)
[2021-05-11 08:01] VITALS: BP 118/47
[2021-05-11] MEDS: FOLIC ACID 1MG TABLET PO SCH (08:31)
[2021-05-11] MEDS: LOSARTAN POTASSIUM 50 MG TABLET PO SCH (08:31)
[2021-05-11] MEDS: HYDROCODONE/ACETAMINOPHEN 10/325MG TABLET PO PRN ×2 (08:31→20:23)
[2021-05-11] MEDS: DOCUSATE SODIUM 250MG CAPSULE PO SCH (08:32)
[2021-05-11] MEDS: CINACALCET HCL 60MG TABLET PO SCH (08:32)
[2021-05-11] MEDS: LIDOCAINE 5% PATCH TOP SCH (08:32)
[2021-05-11] MEDS: ASCORBIC ACID 500 MG TABLET PO SCH ×2 (08:32→20:24)
[2021-05-11] MEDS: ZINC SULFATE 220 MG ( 50 ) CAPSULE PO SCH (08:32)
[2021-05-11] MEDS: CYANOCOBALAMIN 1000MCG/ML VIAL IM SCH (08:32)
[2021-05-11] MEDS: PREGABALIN 75MG CAPSULE PO SCH ×2 (08:32→20:23)
[2021-05-11] MEDS: SEVELAMER CARBONATE 800 MG TABLET PO SCH ×3 (08:32→18:47)
[2021-05-11] MEDS ORDERED: METHIMAZOLE 10MG TABLET PO SCH (09:00)
[2021-05-11] MEDS: [UNRECOGNIZED DRUG - REMARK] TOP SCH (09:00)
[2021-05-11] MEDS: ACETAMINOPHEN 325MG TABLET PO PRN (10:29)
[2021-05-11 13:10] LABS: BASOPHILS % 0.4 % (0.0-2.0); EOSINOPHILS % 1.7 % (0.0-5.0); HEMATOCRIT. 23.6 % (36.0-48.0); HEMOGLOBIN. 7.7 g/dL (12.0-16.0); LYMPHOCYTES % 8.6 % (20.0-50.0); MEAN CORPUSCULAR HEMOGLOBIN 32.3 pg (28.0-32.0); MEAN CORPUSCULAR VOLUME 98.6 fL (81.0-99.0); MEAN PLATELET VOLUME 9.1 fl (7.4-10.4); MONOCYTES % 8.1 % (2.0-8.0); NEUTROPHILS % 81.2 % (40.0-76.0); PLATELET 137 x1000/uL (130-400); RED BLOOD CELL COUNT 2.39 mill/uL (4.2-5.4); RED CELL DISTRIBUTION WIDTH 16.4 % (11.6-14.6)
[2021-05-11 13:31] LABS: T4 FREE 2.57 ng/dL (0.76-1.46)
[2021-05-11 16:24] LABS: HEPATITIS B SURFACE ANTIGEN NEGATIVE
[2021-05-11 20:00] VITALS: BP 127/47
[2021-05-11] MEDS: METHIMAZOLE 10MG TABLET PO SCH (20:24)
[2021-05-12] MEDS: FAMOTIDINE 20MG TABLET PO SCH (06:03)
[2021-05-12 07:54] VITALS: BP 108/45
[2021-05-12] MEDS: DOCUSATE SODIUM 250MG CAPSULE PO SCH (08:30)
[2021-05-12] MEDS: SEVELAMER CARBONATE 800 MG TABLET PO SCH ×3 (08:30→17:36)
[2021-05-12] MEDS: FOLIC ACID 1MG TABLET PO SCH (08:30)
[2021-05-12] MEDS: ASCORBIC ACID 500 MG TABLET PO SCH ×2 (08:30→21:00)
[2021-05-12] MEDS: ZINC SULFATE 220 MG ( 50 ) CAPSULE PO SCH (08:30)
[2021-05-12] MEDS: CINACALCET HCL 60MG TABLET PO SCH (08:30)
[2021-05-12] MEDS: PREGABALIN 75MG CAPSULE PO SCH ×2 (08:30→22:54)
[2021-05-12] MEDS: METHIMAZOLE 10MG TABLET PO SCH ×3 (08:31→17:35)
[2021-05-12] MEDS: HYDROCODONE/ACETAMINOPHEN 10/325MG TABLET PO PRN (08:32)
[2021-05-12] MEDS: [UNRECOGNIZED DRUG - REMARK] TOP SCH (08:44)
[2021-05-12] MEDS: LIDOCAINE 5% PATCH TOP SCH (08:44)
[2021-05-12] MEDS: CYANOCOBALAMIN 1000MCG/ML VIAL IM SCH (08:44)
[2021-05-12] MEDS: LOSARTAN POTASSIUM 50 MG TABLET PO SCH (08:59)
[2021-05-12] MEDS: ACETAMINOPHEN 325MG TABLET PO PRN ×2 (12:52→22:53)
[2021-05-12 20:00] VITALS: BP 124/42
[2021-05-12] MEDS: EPOETIN ALFA-EPBX 10,000 UNIT/ML VIAL SUBCUT SCH (22:45)
[2021-05-13] MEDS: FAMOTIDINE 20MG TABLET PO SCH (06:07)
[2021-05-13 08:11] VITALS: BP 112/55
[2021-05-13 08:26] LABS: HEPATITIS B SURFACE ANTIGEN NEGATIVE
[2021-05-13] MEDS: METHIMAZOLE 10MG TABLET PO SCH ×3 (08:32→17:26)
[2021-05-13] MEDS: CYANOCOBALAMIN 1000MCG/ML VIAL IM SCH (08:32)
[2021-05-13] MEDS: SEVELAMER CARBONATE 800 MG TABLET PO SCH ×3 (08:32→17:26)
[2021-05-13] MEDS: OXYCODONE HCL 20MG TABLET SR 12HR PO SCH ×2 (08:32→20:50)
[2021-05-13] MEDS: CINACALCET HCL 60MG TABLET PO SCH (08:33)
[2021-05-13] MEDS: DOCUSATE SODIUM 250MG CAPSULE PO SCH (08:33)
[2021-05-13] MEDS: PREGABALIN 75MG CAPSULE PO SCH ×2 (08:33→20:49)
[2021-05-13] MEDS: LIDOCAINE 5% PATCH TOP SCH (08:33)
[2021-05-13] MEDS: ZINC SULFATE 220 MG ( 50 ) CAPSULE PO SCH (08:33)
[2021-05-13] MEDS: FOLIC ACID 1MG TABLET PO SCH (08:33)
[2021-05-13] MEDS: LOSARTAN POTASSIUM 50 MG TABLET PO SCH (08:33)
[2021-05-13] MEDS: ASCORBIC ACID 500 MG TABLET PO SCH ×2 (08:34→20:49)
[2021-05-13] MEDS: [UNRECOGNIZED DRUG - REMARK] TOP SCH (09:00)
[2021-05-13] MEDS: HYDROCODONE/ACETAMINOPHEN 10/325MG TABLET PO PRN (15:05)
[2021-05-13] MEDS: ACETAMINOPHEN 325MG TABLET PO PRN (18:04)
[2021-05-13 20:00] VITALS: BP 123/41
[2021-05-14] MEDS ORDERED: HYDROCODONE/ACETAMINOPHEN 10/325MG TABLET PO PRN (00:30)
[2021-05-14] MEDS: FAMOTIDINE 20MG TABLET PO SCH ×2 (07:38→08:04)
[2021-05-14 07:50] VITALS: BP 109/51
[2021-05-14] MEDS: CINACALCET HCL 60MG TABLET PO SCH (08:03)
[2021-05-14] MEDS: DOCUSATE SODIUM 250MG CAPSULE PO SCH (08:03)
[2021-05-14] MEDS: CYANOCOBALAMIN 1000MCG/ML VIAL IM SCH (08:03)
[2021-05-14] MEDS: FOLIC ACID 1MG TABLET PO SCH (08:04)
[2021-05-14] MEDS: PREGABALIN 75MG CAPSULE PO SCH ×2 (08:04→20:31)
[2021-05-14] MEDS: ZINC SULFATE 220 MG ( 50 ) CAPSULE PO SCH (08:04)
[2021-05-14] MEDS: SEVELAMER CARBONATE 800 MG TABLET PO SCH ×3 (08:04→16:50)
[2021-05-14] MEDS: ASCORBIC ACID 500 MG TABLET PO SCH ×2 (08:04→20:31)
[2021-05-14] MEDS: LOSARTAN POTASSIUM 50 MG TABLET PO SCH (08:04)
[2021-05-14] MEDS: METHIMAZOLE 10MG TABLET PO SCH ×3 (08:04→16:50)
[2021-05-14] MEDS: [UNRECOGNIZED DRUG - REMARK] TOP SCH (08:06)
[2021-05-14] MEDS: OXYCODONE HCL 20MG TABLET SR 12HR PO SCH ×2 (08:10→21:00)
[2021-05-14] MEDS: LIDOCAINE 5% PATCH TOP SCH (08:11)
[2021-05-14 20:00] VITALS: BP 106/46
[2021-05-15] MEDS: OXYCODONE HCL 20MG TABLET SR 12HR PO SCH ×3 (02:58→21:49)
[2021-05-15 07:13] LABS: BASOPHILS % 0.5 % (0.0-2.0); HEMATOCRIT. 22.8 % (36.0-48.0); HEMOGLOBIN. 7.4 g/dL (12.0-16.0); LYMPHOCYTES % 12.2 % (20.0-50.0); MEAN CORPUSCULAR HEMOGLOBIN 32.3 pg (28.0-32.0); MEAN CORPUSCULAR VOLUME 99.7 fL (81.0-99.0); MEAN PLATELET VOLUME 8.4 fl (7.4-10.4); MONOCYTES % 7.9 % (2.0-8.0); NEUTROPHILS % 77.4 % (40.0-76.0); PLATELET 138 x1000/uL (130-400); RED BLOOD CELL COUNT 2.28 mill/uL (4.2-5.4); RED CELL DISTRIBUTION WIDTH 16.8 % (11.6-14.6)
[2021-05-15 07:50] VITALS: BP 108/57
[2021-05-15] MEDS: LOSARTAN POTASSIUM 50 MG TABLET PO SCH (09:00)
[2021-05-15] MEDS: LIDOCAINE 5% PATCH TOP SCH (09:02)
[2021-05-15] MEDS: SEVELAMER CARBONATE 800 MG TABLET PO SCH ×3 (09:03→17:35)
[2021-05-15] MEDS: ASCORBIC ACID 500 MG TABLET PO SCH ×2 (09:03→21:47)
[2021-05-15] MEDS: DOCUSATE SODIUM 250MG CAPSULE PO SCH (09:03)
[2021-05-15] MEDS: FOLIC ACID 1MG TABLET PO SCH (09:03)
[2021-05-15] MEDS: ZINC SULFATE 220 MG ( 50 ) CAPSULE PO SCH (09:03)
[2021-05-15] MEDS: CINACALCET HCL 60MG TABLET PO SCH (09:04)
[2021-05-15] MEDS: METHIMAZOLE 10MG TABLET PO SCH ×3 (09:04→17:35)
[2021-05-15] MEDS: PREGABALIN 75MG CAPSULE PO SCH ×2 (09:04→23:05)
[2021-05-15] MEDS: CYANOCOBALAMIN 1000MCG/ML VIAL IM SCH (09:05)
[2021-05-15] MEDS: [UNRECOGNIZED DRUG - REMARK] TOP SCH (09:05)
[2021-05-15] MEDS: ACETAMINOPHEN 325MG TABLET PO PRN (09:05)
[2021-05-15 20:00] VITALS: BP 143/66
[2021-05-15] MEDS: EPOETIN ALFA-EPBX 10,000 UNIT/ML VIAL SUBCUT SCH (21:50)
[2021-05-16] MEDS: FAMOTIDINE 20MG TABLET PO SCH (06:27)
[2021-05-16 07:16] LABS: BASOPHILS % 0.5 % (0.0-2.0); HEMATOCRIT. 23.1 % (36.0-48.0); HEMOGLOBIN. 7.4 g/dL (12.0-16.0); LYMPHOCYTES % 15.1 % (20.0-50.0); MEAN CORPUSCULAR HEMOGLOBIN 31.8 pg (28.0-32.0); MEAN CORPUSCULAR VOLUME 99.1 fL (81.0-99.0); MEAN PLATELET VOLUME 8.4 fl (7.4-10.4); MONOCYTES % 7.5 % (2.0-8.0); NEUTROPHILS % 73.9 % (40.0-76.0); PLATELET 146 x1000/uL (130-400); RED BLOOD CELL COUNT 2.33 mill/uL (4.2-5.4); RED CELL DISTRIBUTION WIDTH 16.6 % (11.6-14.6)
[2021-05-16 08:27] VITALS: BP 120/57
[2021-05-16] MEDS: CINACALCET HCL 60MG TABLET PO SCH (09:06)
[2021-05-16] MEDS: DOCUSATE SODIUM 100MG CAPSULE PO PRN ×2 (09:06→19:05)
[2021-05-16] MEDS: DOCUSATE SODIUM 250MG CAPSULE PO SCH (09:06)
[2021-05-16] MEDS: ASCORBIC ACID 500 MG TABLET PO SCH ×2 (09:06→20:41)
[2021-05-16] MEDS: LOSARTAN POTASSIUM 50 MG TABLET PO SCH (09:06)
[2021-05-16] MEDS: METHIMAZOLE 10MG TABLET PO SCH ×3 (09:07→19:05)
[2021-05-16] MEDS: FOLIC ACID 1MG TABLET PO SCH (09:08)
[2021-05-16] MEDS: SEVELAMER CARBONATE 800 MG TABLET PO SCH ×3 (09:09→19:05)
[2021-05-16] MEDS: LIDOCAINE 5% PATCH TOP SCH (09:09)
[2021-05-16] MEDS: OXYCODONE HCL 20MG TABLET SR 12HR PO SCH ×2 (09:14→20:41)
[2021-05-16] MEDS: CYANOCOBALAMIN 1000MCG/ML VIAL IM SCH (09:15)
[2021-05-16] MEDS: PREGABALIN 75MG CAPSULE PO SCH ×2 (09:15→20:41)
[2021-05-16] MEDS: [UNRECOGNIZED DRUG - REMARK] TOP SCH (11:04)
[2021-05-16] MEDS: ACETAMINOPHEN 325MG TABLET PO PRN (13:54)
[2021-05-16] MEDS: ZINC SULFATE 220 MG ( 50 ) CAPSULE PO SCH (13:56)
[2021-05-16] MEDS ORDERED: HYDROCODONE/ACETAMINOPHEN 10/325MG TABLET PO PRN (16:15)
[2021-05-16] MEDS ORDERED: NALOXONE HCL 0.4MG/ML VIAL IV PRN (16:15)
[2021-05-16] MEDS ORDERED: NALOXONE HCL 0.4 MG/ML 1ML VIAL IV ONE (16:30)
[2021-05-16 20:00] VITALS: BP 102/56
[2021-05-17] MEDS: FAMOTIDINE 20MG TABLET PO SCH (06:17)
[2021-05-17 08:00] VITALS: BP 122/53
[2021-05-17] MEDS: OXYCODONE HCL 20MG TABLET SR 12HR PO SCH (08:54)
[2021-05-17] MEDS: ERGOCALCIFEROL 50000UNITS CAPSULE PO SCH (08:55)
[2021-05-17] MEDS: SEVELAMER CARBONATE 800 MG TABLET PO SCH ×3 (08:55→18:10)
[2021-05-17] MEDS: DOCUSATE SODIUM 250MG CAPSULE PO SCH (08:55)
[2021-05-17] MEDS: PREGABALIN 75MG CAPSULE PO SCH ×2 (08:55→21:00)
[2021-05-17] MEDS: FOLIC ACID 1MG TABLET PO SCH (08:55)
[2021-05-17] MEDS: CINACALCET HCL 60MG TABLET PO SCH (08:55)
[2021-05-17] MEDS: METHIMAZOLE 10MG TABLET PO SCH ×3 (08:55→18:10)
[2021-05-17] MEDS: ZINC SULFATE 220 MG ( 50 ) CAPSULE PO SCH (08:55)
[2021-05-17] MEDS: ASCORBIC ACID 500 MG TABLET PO SCH ×2 (08:55→21:00)
[2021-05-17] MEDS: LOSARTAN POTASSIUM 50 MG TABLET PO SCH (08:55)
[2021-05-17] MEDS: LIDOCAINE 5% PATCH TOP SCH (08:56)
[2021-05-17] MEDS: [UNRECOGNIZED DRUG - REMARK] TOP SCH (09:00)
[2021-05-17 12:04] LABS: HEPATITIS B SURFACE ANTIGEN NEGATIVE
[2021-05-17 14:09] LABS: 25-HYDROXY VITAMIN D3 12 ng/mL (.)
[2021-05-17 19:27] LABS: T4 FREE 2.08 ng/dL (0.76-1.46)
[2021-05-17 19:49] LABS: VITAMIN B12 SERUM >2000 pg/mL pg/mL (211-911)
[2021-05-17 20:00] VITALS: BP 108/56
[2021-05-18] MEDS: FAMOTIDINE 20MG TABLET PO SCH (05:05)
[2021-05-18] MEDS: ACETAMINOPHEN 325MG TABLET PO PRN ×2 (05:06→12:04)
[2021-05-18 07:43] LABS: BASOPHILS % 0.4 % (0.0-2.0); EOSINOPHILS % 2.2 % (0.0-5.0); HEMATOCRIT. 23.5 % (36.0-48.0); HEMOGLOBIN. 7.5 g/dL (12.0-16.0); LYMPHOCYTES % 10.7 % (20.0-50.0); MEAN PLATELET VOLUME 8.8 fl (7.4-10.4); MONOCYTES % 7.2 % (2.0-8.0); NEUTROPHILS % 79.5 % (40.0-76.0); PLATELET 145 x1000/uL (130-400); RED BLOOD CELL COUNT 2.35 mill/uL (4.2-5.4); RED CELL DISTRIBUTION WIDTH 16.8 % (11.6-14.6)
[2021-05-18 07:48] LABS: CHLORIDE 110 mEq/L (98-107)
[2021-05-18 07:53] LABS: PHOSPHORUS 3.2 mg/dL (2.5-4.9)
[2021-05-18 08:00] VITALS: BP 107/63
[2021-05-18] MEDS: CINACALCET HCL 60MG TABLET PO SCH (09:14)
[2021-05-18] MEDS: SEVELAMER CARBONATE 800 MG TABLET PO SCH ×3 (09:14→16:52)
[2021-05-18] MEDS: LOSARTAN POTASSIUM 50 MG TABLET PO SCH (09:15)
[2021-05-18] MEDS: ASCORBIC ACID 500 MG TABLET PO SCH ×2 (09:15→20:49)
[2021-05-18] MEDS: PREGABALIN 75MG CAPSULE PO SCH ×2 (09:15→20:49)
[2021-05-18] MEDS: FOLIC ACID 1MG TABLET PO SCH (09:15)
[2021-05-18] MEDS: LIDOCAINE 5% PATCH TOP SCH (09:16)
[2021-05-18] MEDS: [UNRECOGNIZED DRUG - REMARK] TOP SCH (09:18)
[2021-05-18] MEDS: DOCUSATE SODIUM 250MG CAPSULE PO SCH (09:24)
[2021-05-18] MEDS: ZINC SULFATE 220 MG ( 50 ) CAPSULE PO SCH (09:24)
[2021-05-18] MEDS: METHIMAZOLE 5MG TABLET PO SCH ×2 (12:04→16:52)
[2021-05-18] MEDS: HYDROCODONE/ACETAMINOPHEN 10/325MG TABLET PO PRN (16:52)
[2021-05-18 20:00] VITALS: BP 106/50
[2021-05-19] MEDS: ACETAMINOPHEN 325MG TABLET PO PRN (05:59)
[2021-05-19] MEDS: FAMOTIDINE 20MG TABLET PO SCH (06:00)
[2021-05-19 08:00] VITALS: BP 101/61
[2021-05-19] MEDS: DOCUSATE SODIUM 100MG CAPSULE PO PRN (08:28)
[2021-05-19] MEDS: SEVELAMER CARBONATE 800 MG TABLET PO SCH ×3 (08:28→16:14)
[2021-05-19] MEDS: METHIMAZOLE 5MG TABLET PO SCH ×2 (08:28→16:14)
[2021-05-19] MEDS: ASCORBIC ACID 500 MG TABLET PO SCH (08:28)
[2021-05-19] MEDS: ZINC SULFATE 220 MG ( 50 ) CAPSULE PO SCH (08:29)
[2021-05-19] MEDS: PREGABALIN 75MG CAPSULE PO SCH (08:29)
[2021-05-19] MEDS: FOLIC ACID 1MG TABLET PO SCH (08:29)
[2021-05-19] MEDS: LOSARTAN POTASSIUM 50 MG TABLET PO SCH (08:29)
[2021-05-19] MEDS: CINACALCET HCL 60MG TABLET PO SCH (08:29)
[2021-05-19] MEDS: [UNRECOGNIZED DRUG - REMARK] TOP SCH (08:30)
[2021-05-19] MEDS: LIDOCAINE 5% PATCH TOP SCH (08:31)
[2021-05-19] MEDS: DOCUSATE SODIUM 250MG CAPSULE PO SCH (08:31)
[2021-05-19] MEDS: HYDROCODONE/ACETAMINOPHEN 10/325MG TABLET PO PRN (11:12)
[2021-05-19 14:10] LABS: BASOPHILS % 0.6 % (0.0-2.0); EOSINOPHILS % 3.8 % (0.0-5.0); HEMATOCRIT. 25.6 % (36.0-48.0); HEMOGLOBIN. 8.3 g/dL (12.0-16.0); LYMPHOCYTES % 13.7 % (20.0-50.0); MEAN CORPUSCULAR HEMOGLOBIN 33.2 pg (28.0-32.0); MEAN CORPUSCULAR VOLUME 101.7 fL (81.0-99.0); MEAN PLATELET VOLUME 8.2 fl (7.4-10.4); MONOCYTES % 6.6 % (2.0-8.0); NEUTROPHILS % 75.3 % (40.0-76.0); PLATELET 191 x1000/uL (130-400); RED BLOOD CELL COUNT 2.51 mill/uL (4.2-5.4); RED CELL DISTRIBUTION WIDTH 16.4 % (11.6-14.6)
[2021-05-19 20:00] VITALS: BP 117/58
[2021-05-20] MEDS: PREGABALIN 75MG CAPSULE PO SCH ×3 (01:42→20:44)
[2021-05-20] MEDS: ASCORBIC ACID 500 MG TABLET PO SCH ×3 (01:43→20:44)
[2021-05-20 08:00] VITALS: BP 99/48
[2021-05-20] MEDS: LOSARTAN POTASSIUM 50 MG TABLET PO SCH (09:00)
[2021-05-20] MEDS: LIDOCAINE 5% PATCH TOP SCH (09:03)
[2021-05-20] MEDS: CINACALCET HCL 60MG TABLET PO SCH (09:04)
[2021-05-20] MEDS: DOCUSATE SODIUM 250MG CAPSULE PO SCH (09:04)
[2021-05-20] MEDS: SEVELAMER CARBONATE 800 MG TABLET PO SCH ×3 (09:04→16:07)
[2021-05-20] MEDS: ZINC SULFATE 220 MG ( 50 ) CAPSULE PO SCH (09:04)
[2021-05-20] MEDS: FOLIC ACID 1MG TABLET PO SCH (09:04)
[2021-05-20] MEDS: METHIMAZOLE 5MG TABLET PO SCH ×2 (09:05→16:08)
[2021-05-20] MEDS: [UNRECOGNIZED DRUG - REMARK] TOP SCH (09:05)
[2021-05-20] MEDS: FAMOTIDINE 20MG TABLET PO SCH (09:05)
[2021-05-20 13:20] LABS: HEPATITIS B SURFACE ANTIGEN NEGATIVE
[2021-05-20] MEDS: HYDROCODONE/ACETAMINOPHEN 10/325MG TABLET PO PRN ×2 (13:28→22:25)
[2021-05-20 20:00] VITALS: BP 113/49
[2021-05-21] MEDS: FAMOTIDINE 20MG TABLET PO SCH (06:31)
[2021-05-21 08:00] VITALS: BP 110/46
[2021-05-21] MEDS: LOSARTAN POTASSIUM 50 MG TABLET PO SCH (09:00)
[2021-05-21] MEDS: FOLIC ACID 1MG TABLET PO SCH (09:01)
[2021-05-21] MEDS: PREGABALIN 75MG CAPSULE PO SCH ×2 (09:01→20:18)
[2021-05-21] MEDS: LIDOCAINE 5% PATCH TOP SCH (09:02)
[2021-05-21] MEDS: DOCUSATE SODIUM 250MG CAPSULE PO SCH (09:02)
[2021-05-21] MEDS: ASCORBIC ACID 500 MG TABLET PO SCH ×2 (09:02→20:18)
[2021-05-21] MEDS: SEVELAMER CARBONATE 800 MG TABLET PO SCH ×3 (09:02→17:01)
[2021-05-21] MEDS: ZINC SULFATE 220 MG ( 50 ) CAPSULE PO SCH (09:02)
[2021-05-21] MEDS: CINACALCET HCL 60MG TABLET PO SCH (09:02)
[2021-05-21] MEDS: METHIMAZOLE 5MG TABLET PO SCH ×2 (09:03→17:01)
[2021-05-21] MEDS: [UNRECOGNIZED DRUG - REMARK] TOP SCH (13:16)
[2021-05-21 20:00] VITALS: BP 114/48
[2021-05-22] MEDS: FAMOTIDINE 20MG TABLET PO SCH (06:29)
[2021-05-22 07:25] LABS: BASOPHILS % 0.5 % (0.0-2.0); EOSINOPHILS % 3.1 % (0.0-5.0); HEMATOCRIT. 24.7 % (36.0-48.0); HEMOGLOBIN. 7.8 g/dL (12.0-16.0); LYMPHOCYTES % 17.3 % (20.0-50.0); MEAN CORPUSCULAR HEMOGLOBIN 32.2 pg (28.0-32.0); MEAN CORPUSCULAR VOLUME 102.3 fL (81.0-99.0); MEAN PLATELET VOLUME 8.2 fl (7.4-10.4); MONOCYTES % 10.5 % (2.0-8.0); NEUTROPHILS % 68.6 % (40.0-76.0); PLATELET 197 x1000/uL (130-400); RED BLOOD CELL COUNT 2.42 mill/uL (4.2-5.4); RED CELL DISTRIBUTION WIDTH 16.7 % (11.6-14.6)
[2021-05-22 07:47] VITALS: BP 110/45
[2021-05-22] MEDS: SEVELAMER CARBONATE 800 MG TABLET PO SCH ×3 (08:37→17:16)
[2021-05-22] MEDS: DOCUSATE SODIUM 250MG CAPSULE PO SCH (08:37)
[2021-05-22] MEDS: ZINC SULFATE 220 MG ( 50 ) CAPSULE PO SCH (08:37)
[2021-05-22] MEDS: CINACALCET HCL 60MG TABLET PO SCH (08:37)
[2021-05-22] MEDS: FOLIC ACID 1MG TABLET PO SCH (08:38)
[2021-05-22] MEDS: METHIMAZOLE 5MG TABLET PO SCH ×2 (08:38→17:18)
[2021-05-22] MEDS: ASCORBIC ACID 500 MG TABLET PO SCH ×2 (08:38→22:31)
[2021-05-22] MEDS: PREGABALIN 75MG CAPSULE PO SCH ×2 (08:38→22:31)
[2021-05-22] MEDS: [UNRECOGNIZED DRUG - REMARK] TOP SCH (08:40)
[2021-05-22] MEDS: LIDOCAINE 5% PATCH TOP SCH (08:42)
[2021-05-22] MEDS: LOSARTAN POTASSIUM 50 MG TABLET PO SCH (08:42)
[2021-05-22] MEDS: HYDROCODONE/ACETAMINOPHEN 10/325MG TABLET PO PRN (13:35)
[2021-05-22] MEDS: DOCUSATE SODIUM 100MG CAPSULE PO PRN (17:18)
[2021-05-22 17:36] LABS: HEPATITIS B SURFACE ANTIGEN NEGATIVE
[2021-05-22 20:00] VITALS: BP 116/48
[2021-05-23] MEDS: FAMOTIDINE 20MG TABLET PO SCH (06:19)
[2021-05-23 08:27] VITALS: BP 113/59
[2021-05-23] MEDS: METHIMAZOLE 5MG TABLET PO SCH ×2 (08:40→17:18)
[2021-05-23] MEDS: SEVELAMER CARBONATE 800 MG TABLET PO SCH ×3 (08:40→17:17)
[2021-05-23] MEDS: PREGABALIN 75MG CAPSULE PO SCH ×2 (08:40→20:52)
[2021-05-23] MEDS: DOCUSATE SODIUM 250MG CAPSULE PO SCH (08:40)
[2021-05-23] MEDS: ZINC SULFATE 220 MG ( 50 ) CAPSULE PO SCH (08:40)
[2021-05-23] MEDS: CYANOCOBALAMIN 1000MCG/ML VIAL IM SCH (08:40)
[2021-05-23] MEDS: LOSARTAN POTASSIUM 50 MG TABLET PO SCH (08:41)
[2021-05-23] MEDS: LIDOCAINE 5% PATCH TOP SCH (08:41)
[2021-05-23] MEDS: FOLIC ACID 1MG TABLET PO SCH (08:41)
[2021-05-23] MEDS: ASCORBIC ACID 500 MG TABLET PO SCH ×2 (08:41→20:52)
[2021-05-23] MEDS: [UNRECOGNIZED DRUG - REMARK] TOP SCH (09:00)
[2021-05-23] MEDS: CINACALCET HCL 60MG TABLET PO SCH (10:30)
[2021-05-23] MEDS: ACETAMINOPHEN 325MG TABLET PO PRN (15:57)
[2021-05-23 20:31] VITALS: BP 101/49
[2021-05-24] MEDS: FAMOTIDINE 20MG TABLET PO SCH (06:28)
[2021-05-24 08:00] VITALS: BP 113/54
[2021-05-24] MEDS: [UNRECOGNIZED DRUG - REMARK] TOP SCH (09:00)
[2021-05-24] MEDS: DOCUSATE SODIUM 250MG CAPSULE PO SCH (09:15)
[2021-05-24] MEDS: LIDOCAINE 5% PATCH TOP SCH (09:15)
[2021-05-24] MEDS: SEVELAMER CARBONATE 800 MG TABLET PO SCH ×3 (09:15→21:16)
[2021-05-24] MEDS: ZINC SULFATE 220 MG ( 50 ) CAPSULE PO SCH (09:16)
[2021-05-24] MEDS: METHIMAZOLE 5MG TABLET PO SCH ×2 (09:16→21:17)
[2021-05-24] MEDS: CINACALCET HCL 60MG TABLET PO SCH (09:16)
[2021-05-24] MEDS: LOSARTAN POTASSIUM 50 MG TABLET PO SCH (09:16)
[2021-05-24] MEDS: ERGOCALCIFEROL 50000UNITS CAPSULE PO SCH (09:16)
[2021-05-24] MEDS: PREGABALIN 75MG CAPSULE PO SCH ×2 (09:16→21:17)
[2021-05-24] MEDS: FOLIC ACID 1MG TABLET PO SCH (09:16)
[2021-05-24] MEDS: ASCORBIC ACID 500 MG TABLET PO SCH ×2 (09:16→21:17)
[2021-05-24] MEDS: HYDROCODONE/ACETAMINOPHEN 10/325MG TABLET PO PRN (10:20)
[2021-05-24 16:03] LABS: HEPATITIS B SURFACE ANTIGEN NEGATIVE
[2021-05-24 20:00] VITALS: BP 122/58
[2021-05-24 20:11] LABS: HEMATOCRIT 26.3 % (36.0-48.0); HEMOGLOBIN 8.6 g/dL (12.0-16.0); MEAN CORPUSCULAR HEMOGLOBIN 31.6 pg (28.0-32.0); MEAN CORPUSCULAR VOLUME 96.1 fL (81.0-99.0); PLATELET 249 x1000/uL (130-400); RED BLOOD CELL COUNT 2.73 mill/uL (4.2-5.4); RED CELL DISTRIBUTION WIDTH 15.4 % (11.6-14.6)
[2021-05-24 20:20] LABS: CHLORIDE 109 mEq/L (98-107)
[2021-05-24 20:22] LABS: INR 1.2; PARTIAL THROMBOPLASTIN TIME 29.6 sec (23.4-31.0); PROTHROMBIN TIME 12.3 sec (9.6-11.0)
[2021-05-24 21:57] LABS: T4 FREE 1.96 ng/dL (0.76-1.46)
[2021-05-25] VITALS (20 sets, daily range): BP systolic 109–133; BP diastolic 26–58
[2021-05-25] MEDS: FAMOTIDINE 20MG TABLET PO SCH (06:07)
[2021-05-25] MEDS: DOCUSATE SODIUM 250MG CAPSULE PO SCH (08:45)
[2021-05-25] MEDS: PREGABALIN 75MG CAPSULE PO SCH ×2 (08:45→20:45)
[2021-05-25] MEDS: SEVELAMER CARBONATE 800 MG TABLET PO SCH ×3 (08:45→18:02)
[2021-05-25] MEDS: LOSARTAN POTASSIUM 50 MG TABLET PO SCH (08:45)
[2021-05-25] MEDS: ZINC SULFATE 220 MG ( 50 ) CAPSULE PO SCH (08:45)
[2021-05-25] MEDS: FOLIC ACID 1MG TABLET PO SCH (08:45)
[2021-05-25] MEDS: CINACALCET HCL 60MG TABLET PO SCH (08:45)
[2021-05-25] MEDS: ASCORBIC ACID 500 MG TABLET PO SCH ×2 (08:46→20:45)
[2021-05-25] MEDS: METHIMAZOLE 5MG TABLET PO SCH ×4 (08:46→17:00)
[2021-05-25] MEDS: LIDOCAINE 5% PATCH TOP SCH (08:46)
[2021-05-25] MEDS ORDERED: LIDOCAINE HCL 1% 30ML VIAL (10MG/ML) ONE (09:48)
[2021-05-25] MEDS ORDERED: IOHEXOL-300 100 ML BOTTLE ONE (09:52)
[2021-05-25] MEDS ORDERED: FENTANYL CITRATE/PF 50MCG/ML 2ML VIAL ONE (10:27)
[2021-05-25] MEDS ORDERED: IOHEXOL-300 50 ML BOTTLE IV ONE (10:42)
[2021-05-25] MEDS: [UNRECOGNIZED DRUG - REMARK] TOP SCH (13:01)
[2021-05-25] MEDS ORDERED: NALOXONE HCL 0.4MG/ML VIAL IV PRN (16:00)
[2021-05-25 17:04] LABS: HEPATITIS B SURFACE ANTIGEN NEGATIVE
[2021-05-26] MEDS: FAMOTIDINE 20MG TABLET PO SCH (06:13)
[2021-05-26 08:00] VITALS: BP 115/60
[2021-05-26] MEDS: ASCORBIC ACID 500 MG TABLET PO SCH ×2 (09:00→20:33)
[2021-05-26] MEDS: [UNRECOGNIZED DRUG - REMARK] TOP SCH (09:00)
[2021-05-26] MEDS: SEVELAMER CARBONATE 800 MG TABLET PO SCH ×3 (09:00→18:01)
[2021-05-26] MEDS: DOCUSATE SODIUM 250MG CAPSULE PO SCH (09:00)
[2021-05-26] MEDS: LOSARTAN POTASSIUM 50 MG TABLET PO SCH (09:00)
[2021-05-26] MEDS: METHIMAZOLE 5MG TABLET PO SCH ×3 (09:00→18:01)
[2021-05-26] MEDS: FOLIC ACID 1MG TABLET PO SCH (09:00)
[2021-05-26] MEDS: ZINC SULFATE 220 MG ( 50 ) CAPSULE PO SCH (09:00)
[2021-05-26] MEDS: CINACALCET HCL 60MG TABLET PO SCH (09:00)
[2021-05-26] MEDS: PREGABALIN 75MG CAPSULE PO SCH ×2 (09:00→20:33)
[2021-05-26] MEDS: LIDOCAINE 5% PATCH TOP SCH (09:33)
[2021-05-26] MEDS: DOCUSATE SODIUM 100MG CAPSULE PO PRN (18:01)
[2021-05-26 20:00] VITALS: BP 144/65
[2021-05-27] MEDS: FAMOTIDINE 20MG TABLET PO SCH (06:49)
[2021-05-27 08:00] VITALS: BP 114/48
[2021-05-27] MEDS: FOLIC ACID 1MG TABLET PO SCH (09:00)
[2021-05-27] MEDS: PREGABALIN 75MG CAPSULE PO SCH ×2 (09:00→22:01)
[2021-05-27] MEDS: LOSARTAN POTASSIUM 50 MG TABLET PO SCH (09:00)
[2021-05-27] MEDS: DOCUSATE SODIUM 250MG CAPSULE PO SCH (09:00)
[2021-05-27] MEDS: ASCORBIC ACID 500 MG TABLET PO SCH ×2 (09:00→22:01)
[2021-05-27] MEDS: CINACALCET HCL 60MG TABLET PO SCH (09:00)
[2021-05-27] MEDS: ZINC SULFATE 220 MG ( 50 ) CAPSULE PO SCH (09:00)
[2021-05-27] MEDS: SEVELAMER CARBONATE 800 MG TABLET PO SCH ×3 (09:00→16:59)
[2021-05-27] MEDS: METHIMAZOLE 5MG TABLET PO SCH ×3 (09:00→17:00)
[2021-05-27] MEDS: [UNRECOGNIZED DRUG - REMARK] TOP SCH (09:04)
[2021-05-27] MEDS: LIDOCAINE 5% PATCH TOP SCH (09:04)
[2021-05-27 20:00] VITALS: BP 121/60
[2021-05-28] MEDS: FAMOTIDINE 20MG TABLET PO SCH (06:23)
[2021-05-28 08:00] VITALS: BP 115/60
[2021-05-28] MEDS: DOCUSATE SODIUM 250MG CAPSULE PO SCH (08:54)
[2021-05-28] MEDS: PREGABALIN 75MG CAPSULE PO SCH ×2 (08:55→21:50)
[2021-05-28] MEDS: ZINC SULFATE 220 MG ( 50 ) CAPSULE PO SCH (08:55)
[2021-05-28] MEDS: SEVELAMER CARBONATE 800 MG TABLET PO SCH ×3 (08:55→17:00)
[2021-05-28] MEDS: ASCORBIC ACID 500 MG TABLET PO SCH ×2 (08:55→21:50)
[2021-05-28] MEDS: LOSARTAN POTASSIUM 50 MG TABLET PO SCH (08:56)
[2021-05-28] MEDS: METHIMAZOLE 5MG TABLET PO SCH ×3 (08:56→17:00)
[2021-05-28] MEDS: FOLIC ACID 1MG TABLET PO SCH (08:56)
[2021-05-28] MEDS: CINACALCET HCL 60MG TABLET PO SCH (08:56)
[2021-05-28] MEDS: LIDOCAINE 5% PATCH TOP SCH (08:58)
[2021-05-28] MEDS: [UNRECOGNIZED DRUG - REMARK] TOP SCH (09:00)
[2021-05-28] MEDS: HYDROCODONE/ACETAMINOPHEN 10/325MG TABLET PO PRN (15:50)
[2021-05-28 20:00] VITALS: BP 106/58
[2021-05-29 06:48] LABS: BASOPHILS % 0.5 % (0.0-2.0); EOSINOPHILS % 2.4 % (0.0-5.0); HEMATOCRIT. 26.3 % (36.0-48.0); HEMOGLOBIN. 8.2 g/dL (12.0-16.0); LYMPHOCYTES % 22.9 % (20.0-50.0); MEAN CORPUSCULAR VOLUME 99.1 fL (81.0-99.0); MEAN PLATELET VOLUME 8.3 fl (7.4-10.4); MONOCYTES % 13.8 % (2.0-8.0); NEUTROPHILS % 60.4 % (40.0-76.0); PLATELET 225 x1000/uL (130-400); RED BLOOD CELL COUNT 2.66 mill/uL (4.2-5.4)
[2021-05-29] MEDS: FAMOTIDINE 20MG TABLET PO SCH (07:40)
[2021-05-29] MEDS: METHIMAZOLE 5MG TABLET PO SCH ×5 (09:00→16:07)
[2021-05-29] MEDS: [UNRECOGNIZED DRUG - REMARK] TOP SCH (09:00)
[2021-05-29 11:20] VITALS: BP 22/70
[2021-05-29] MEDS: DOCUSATE SODIUM 250MG CAPSULE PO SCH (11:20)
[2021-05-29] MEDS: SEVELAMER CARBONATE 800 MG TABLET PO SCH ×3 (11:20→16:26)
[2021-05-29] MEDS: FOLIC ACID 1MG TABLET PO SCH (11:20)
[2021-05-29] MEDS: ASCORBIC ACID 500 MG TABLET PO SCH ×2 (11:20→21:49)
[2021-05-29] MEDS: CINACALCET HCL 60MG TABLET PO SCH (11:21)
[2021-05-29] MEDS: PREGABALIN 75MG CAPSULE PO SCH ×2 (11:21→21:49)
[2021-05-29] MEDS: LOSARTAN POTASSIUM 50 MG TABLET PO SCH (11:21)
[2021-05-29] MEDS: ZINC SULFATE 220 MG ( 50 ) CAPSULE PO SCH (11:21)
[2021-05-29] MEDS: LIDOCAINE 5% PATCH TOP SCH (11:36)
[2021-05-29 11:38] LABS: HEPATITIS B SURFACE ANTIGEN NEGATIVE
[2021-05-29 20:00] VITALS: BP 128/62
[2021-05-30] MEDS: FAMOTIDINE 20MG TABLET PO SCH (06:12)
[2021-05-30 08:00] VITALS: BP 116/57
[2021-05-30] MEDS: SEVELAMER CARBONATE 800 MG TABLET PO SCH ×2 (08:49→13:01)
[2021-05-30] MEDS: LOSARTAN POTASSIUM 50 MG TABLET PO SCH (08:50)
[2021-05-30] MEDS: DOCUSATE SODIUM 250MG CAPSULE PO SCH (08:53)
[2021-05-30] MEDS: CYANOCOBALAMIN 1000MCG/ML VIAL IM SCH (08:54)
[2021-05-30] MEDS: ASCORBIC ACID 500 MG TABLET PO SCH (08:54)
[2021-05-30] MEDS: LIDOCAINE 5% PATCH TOP SCH (08:55)
[2021-05-30] MEDS: PREGABALIN 75MG CAPSULE PO SCH (08:55)
[2021-05-30] MEDS: FOLIC ACID 1MG TABLET PO SCH (08:55)
[2021-05-30] MEDS: ZINC SULFATE 220 MG ( 50 ) CAPSULE PO SCH (08:56)
[2021-05-30] MEDS: METHIMAZOLE 5MG TABLET PO SCH ×2 (08:56→13:00)
[2021-05-30] MEDS: CINACALCET HCL 60MG TABLET PO SCH (08:57)
[2021-05-30] MEDS: [UNRECOGNIZED DRUG - REMARK] TOP SCH (09:00)
[2021-05-30 11:32] VITALS: BP 122/59
[2021-05-30] MEDS ORDERED: *PATIENT'S OWN MEDICATION STORAGE XX SCH (14:15)
[2021-05-30] MEDS ORDERED: HYDROCODONE/ACETAMINOPHEN 10/325MG TABLET PO PRN (14:45)
== END 2021-05-30 15:00 | DRG 463 ==
PROVIDERS: ADMIT Physical Medicine & Rehabilitation Spinal Cord Injury Medicine; ATTEND Internal Medicine
PROC: 5A1D70Z Performance of Urinary Filtration, Intermittent, Less than 6 Hours Per Day (ICD-10-PCS; principal; 2021-05-09)
PROC: 0JB70ZZ Excision of Back Subcutaneous Tissue and Fascia, Open Approach (ICD-10-PCS; 2021-05-10)
PROC: 5A1D70Z Performance of Urinary Filtration, Intermittent, Less than 6 Hours Per Day (ICD-10-PCS; 2021-05-11)
PROC: 5A1D70Z Performance of Urinary Filtration, Intermittent, Less than 6 Hours Per Day (ICD-10-PCS; 2021-05-13)
PROC: 5A1D70Z Performance of Urinary Filtration, Intermittent, Less than 6 Hours Per Day (ICD-10-PCS; 2021-05-17)
PROC: 5A1D70Z Performance of Urinary Filtration, Intermittent, Less than 6 Hours Per Day (ICD-10-PCS; 2021-05-19)
PROC: 5A1D70Z Performance of Urinary Filtration, Intermittent, Less than 6 Hours Per Day (ICD-10-PCS; 2021-05-22)
PROC: 5A1D70Z Performance of Urinary Filtration, Intermittent, Less than 6 Hours Per Day (ICD-10-PCS; 2021-05-24)
PROC: 03WY3JZ Revision of Synthetic Substitute in Upper Artery, Percutaneous Approach (ICD-10-PCS; 2021-05-25)
PROC: 05WY3JZ Revision of Synthetic Substitute in Upper Vein, Percutaneous Approach (ICD-10-PCS; 2021-05-25)
PROC: B51W1ZZ Fluoroscopy of Dialysis Shunt/Fistula using Low Osmolar Contrast (ICD-10-PCS; 2021-05-25)
PROC: 057Y3DZ Dilation of Upper Vein with Intraluminal Device, Percutaneous Approach (ICD-10-PCS; 2021-05-25)
PROC: 5A1D70Z Performance of Urinary Filtration, Intermittent, Less than 6 Hours Per Day (ICD-10-PCS; 2021-05-27)
PROC: 5A1D70Z Performance of Urinary Filtration, Intermittent, Less than 6 Hours Per Day (ICD-10-PCS; 2021-05-29)
DX: C79.51 Secondary malignant neoplasm of bone (principal); L89.143 Pressure ulcer of left lower back, stage 3; N18.6 End stage renal disease; E43 Unspecified severe protein-calorie malnutrition; G92.8 Other toxic encephalopathy; C34.90 Malignant neoplasm of unspecified part of unspecified bronchus or lung; I12.0 Hypertensive chronic kidney disease with stage 5 chronic kidney disease or end stage renal disease; N17.9 Acute kidney failure, unspecified; G82.20 Paraplegia, unspecified; T82.858A Stenosis of other vascular prosthetic devices, implants and grafts, initial encounter; E11.22 Type 2 diabetes mellitus with diabetic chronic kidney disease; R13.10 Dysphagia, unspecified; E53.8 Deficiency of other specified B group vitamins; E55.9 Vitamin D deficiency, unspecified; E05.90 Thyrotoxicosis, unspecified without thyrotoxic crisis or storm; M17.0 Bilateral primary osteoarthritis of knee; R53.81 Other malaise; J44.9 Chronic obstructive pulmonary disease, unspecified; G47.33 Obstructive sleep apnea (adult) (pediatric); D63.1 Anemia in chronic kidney disease; F03.90 Unspecified dementia, unspecified severity, without behavioral disturbance, psychotic disturbance, mood disturbance, and anxiety; F32.9 Major depressive disorder, single episode, unspecified; F41.9 Anxiety disorder, unspecified; I27.21 Secondary pulmonary arterial hypertension; Z20.822 Contact with and (suspected) exposure to COVID-19; F09 Unspecified mental disorder due to known physiological condition; K59.00 Constipation, unspecified; M47.812 Spondylosis without myelopathy or radiculopathy, cervical region; M48.02 Spinal stenosis, cervical region; Z82.49 Family history of ischemic heart disease and other diseases of the circulatory system; Z99.81 Dependence on supplemental oxygen; Z99.2 Dependence on renal dialysis; Z86.73 Personal history of transient ischemic attack (TIA), and cerebral infarction without residual deficits; Z68.29 Body mass index [BMI] 29.0-29.9, adult; Y84.1 Kidney dialysis as the cause of abnormal reaction of the patient, or of later complication, without mention of misadventure at the time of the procedure; Y92.89 Other specified places as the place of occurrence of the external cause; R26.9 Unspecified abnormalities of gait and mobility
CPT/HCPCS: 36415; 36902; 80048; 80053; 82040; 82140; 82306; 82533; 82607; 82728; 82746; 83036; 83540; 83550; 83735; 84100; 84134; 84439; 84443; 84481; 85025; 85027; 86705; 86709; 86803; 87340; 87426; 92523; 92610; 93970; 93971; 97110; 97162; 97166; 97530; 97535; 97542; 99152; 99153; A4565; C1725; C1766; C1769; C1876; J0885; J1644; J3010; J3420; J3490; Q9967; G0500

== ENCOUNTER 2021-06-08 16:04 | Inpatient (IN) | payer MEDICARE, MEDICAID ==
[~2021-06-08] VITALS: Ht 165.1 cm; Wt 72.1 kg
[2021-06-08] MEDS ORDERED: MORPHINE SULFATE 4 MG/ML CPJ (NOT FOR IM USE) IV STA ×2 (17:25→19:46)
[2021-06-08] MEDS ORDERED: SODIUM CHLORIDE 0.9% 500 ML IV ONE (17:45)
[2021-06-08] MEDS ORDERED: ACETAMINOPHEN 325MG TABLET PO ONE (17:45)
[2021-06-08 17:52] LABS: BASOPHILS % 0.8 % (0.0-2.0); EOSINOPHILS % 2.3 % (0.0-5.0); HEMATOCRIT. 27.9 % (36.0-48.0); HEMOGLOBIN. 8.8 g/dL (12.0-16.0); LYMPHOCYTES % 7.1 % (20.0-50.0); MEAN CORPUSCULAR HEMOGLOBIN 30.8 pg (28.0-32.0); MEAN CORPUSCULAR VOLUME 97.2 fL (81.0-99.0); MEAN PLATELET VOLUME 8.3 fl (7.4-10.4); NEUTROPHILS % 80.8 % (40.0-76.0); PLATELET 227 x1000/uL (130-400); RED BLOOD CELL COUNT 2.87 mill/uL (4.2-5.4); RED CELL DISTRIBUTION WIDTH 17.3 % (11.6-14.6)
[2021-06-08 17:57] LABS: CHLORIDE 109 mEq/L (98-107)
[2021-06-08] MEDS ORDERED: MORPHINE SULFATE 2 MG/ML CPJ (NOT FOR IM USE) IV NR ×2 (18:15→20:25)
[2021-06-08] MEDS ORDERED: SODIUM POLYSTYRENE SULFONATE 15 G/60 ML BOT PO ONE (21:15)
[2021-06-08] MEDS ORDERED: ACETAMINOPHEN 325MG TABLET PO PRN ×2 (21:15)
[2021-06-08] MEDS ORDERED: MAGNESIUM/ALUMINUM HYDROXIDE/SIMETHICONE 30ML UDC PO PRN (21:15)
[2021-06-08] MEDS ORDERED: CLONIDINE 0.1MG TABLET PO PRN (21:15)
[2021-06-08] MEDS ORDERED: ZOLPIDEM TARTRATE 5MG TABLET PO PRN (21:15)
[2021-06-08] MEDS ORDERED: DOCUSATE SODIUM 100MG CAPSULE PO PRN (21:15)
[2021-06-08] MEDS ORDERED: ONDANSETRON HCL 4MG/2ML INJ IV PRN (21:15)
[2021-06-08] MEDS ORDERED: GUAIFENESIN 200MG/10ML SUGAR FREE UDC PO PRN (21:15)
[2021-06-08] MEDS ORDERED: TRAMADOL 50MG TABLET PO PRN (21:15)
[2021-06-08] MEDS ORDERED: NITROGLYCERIN 0.4MG TABLET SL SL PRN (21:15)
[2021-06-08] MEDS ORDERED: METHIMAZOLE 5MG TABLET PO SCH (21:15)
[2021-06-08] MEDS ORDERED: IPRATROPIUM/ALBUTEROL 0.5-3(2.5)MG/3ML NEB NEB PRN (21:15)
[2021-06-08] MEDS ORDERED: PROPRANOLOL HCL 10MG TABLET PO ONE (21:15)
[2021-06-08 21:51] LABS: T4 FREE 1.86 ng/dL (0.76-1.46)
[2021-06-09] VITALS (7 sets, daily range): BP systolic 125–160; BP diastolic 58–86
[2021-06-09 00:11] LABS: CREATINE KINASE 27 IU/L (26-192)
[2021-06-09 00:12] LABS: CREATINE KINASE MB FRACTION < 1.0 ng/mL (0.5-3.6)
[2021-06-09] MEDS: MORPHINE SULFATE 2 MG/ML CPJ (NOT FOR IM USE) IV PRN ×4 (02:27→21:01)
[2021-06-09] MEDS: PROPRANOLOL HCL 10MG TABLET PO SCH ×2 (06:07→19:05)
[2021-06-09] MEDS: SEVELAMER CARBONATE 800 MG TABLET PO SCH ×3 (06:08→19:05)
[2021-06-09] MEDS: OXYCODONE HCL 20MG TABLET SR 12HR PO SCH ×2 (08:55→21:00)
[2021-06-09] MEDS: FAMOTIDINE 20MG TABLET PO SCH (08:56)
[2021-06-09] MEDS: ENOXAPARIN 30MG/0.3ML SYR SUBCUT SCH (11:11)
[2021-06-10] VITALS: BP 130/73
[2021-06-10 00:46] LABS: BASOPHILS % 0.8 % (0.0-2.0); EOSINOPHILS % 1.7 % (0.0-5.0); HEMATOCRIT. 25.7 % (36.0-48.0); HEMOGLOBIN. 8.5 g/dL (12.0-16.0); LYMPHOCYTES % 9.7 % (20.0-50.0); MEAN CORPUSCULAR VOLUME 94.2 fL (81.0-99.0); MEAN PLATELET VOLUME 8.1 fl (7.4-10.4); MONOCYTES % 7.1 % (2.0-8.0); NEUTROPHILS % 80.7 % (40.0-76.0); PLATELET 257 x1000/uL (130-400); RED BLOOD CELL COUNT 2.73 mill/uL (4.2-5.4); RED CELL DISTRIBUTION WIDTH 16.8 % (11.6-14.6)
[2021-06-10 00:53] LABS: CHLORIDE 108 mEq/L (98-107)
[2021-06-10 01:00] LABS: PHOSPHORUS 5.6 mg/dL (2.5-4.9)
[2021-06-10 01:02] LABS: CREATINE KINASE 18 IU/L (26-192)
[2021-06-10 01:05] LABS: CREATINE KINASE MB FRACTION 1.2 ng/mL (0.5-3.6)
[2021-06-10 01:20] LABS: HEPATITIS B SURFACE ANTIGEN NEGATIVE
[2021-06-10 04:00] VITALS: BP 139/53
[2021-06-10] MEDS: SEVELAMER CARBONATE 800 MG TABLET PO SCH ×3 (06:13→17:29)
[2021-06-10] MEDS: PROPRANOLOL HCL 10MG TABLET PO SCH ×2 (06:13→17:31)
[2021-06-10 08:00] VITALS: BP_SYST 149; BP_DIAS 35; BP_DIAS 85
[2021-06-10] MEDS: ENOXAPARIN 30MG/0.3ML SYR SUBCUT SCH (08:46)
[2021-06-10] MEDS: FAMOTIDINE 20MG TABLET PO SCH (08:46)
[2021-06-10] MEDS: OXYCODONE HCL 20MG TABLET SR 12HR PO SCH ×2 (09:00→22:18)
[2021-06-10 12:00] VITALS: BP 153/81
[2021-06-10] MEDS: MORPHINE SULFATE 2 MG/ML CPJ (NOT FOR IM USE) IV PRN (12:55)
[2021-06-10 16:00] VITALS: BP 131/50
[2021-06-10 20:00] VITALS: BP 119/58
[2021-06-11] VITALS: BP 131/70
[2021-06-11 04:00] VITALS: BP 116/57
[2021-06-11] MEDS: PROPRANOLOL HCL 10MG TABLET PO SCH ×2 (06:29→17:16)
[2021-06-11 08:00] VITALS: BP 122/69
[2021-06-11] MEDS: SEVELAMER CARBONATE 800 MG TABLET PO SCH ×3 (08:26→17:16)
[2021-06-11] MEDS: FAMOTIDINE 20MG TABLET PO SCH (08:36)
[2021-06-11] MEDS: MORPHINE SULFATE 2 MG/ML CPJ (NOT FOR IM USE) IV PRN ×2 (08:39→18:18)
[2021-06-11] MEDS: ENOXAPARIN 30MG/0.3ML SYR SUBCUT SCH (08:42)
[2021-06-11] MEDS: OXYCODONE HCL 20MG TABLET SR 12HR PO SCH ×2 (09:00→21:16)
[2021-06-11 12:00] VITALS: BP 132/67
[2021-06-11 16:00] VITALS: BP 122/70
[2021-06-11 20:00] VITALS: BP 110/58
[2021-06-12] VITALS: BP 117/54
[2021-06-12 04:00] VITALS: BP 114/58
[2021-06-12] MEDS: SEVELAMER CARBONATE 800 MG TABLET PO SCH ×3 (05:41→18:06)
[2021-06-12] MEDS: PROPRANOLOL HCL 10MG TABLET PO SCH ×2 (05:42→18:06)
[2021-06-12 08:00] VITALS: BP 130/66
[2021-06-12] MEDS: FAMOTIDINE 20MG TABLET PO SCH (10:31)
[2021-06-12] MEDS: ENOXAPARIN 30MG/0.3ML SYR SUBCUT SCH (10:31)
[2021-06-12] MEDS: OXYCODONE HCL 20MG TABLET SR 12HR PO SCH ×2 (10:33→21:31)
[2021-06-12 12:00] VITALS: BP 122/50
[2021-06-12 16:00] VITALS: BP 114/51
[2021-06-12] MEDS: MORPHINE SULFATE 2 MG/ML CPJ (NOT FOR IM USE) IV PRN (19:07)
[2021-06-12] MEDS ORDERED: NALOXONE HCL 0.4MG/ML VIAL IV PRN (19:15)
[2021-06-12 20:00] VITALS: BP 126/41
[2021-06-13] VITALS: BP 92/50
[2021-06-13 04:00] VITALS: BP 121/48
[2021-06-13] MEDS: PROPRANOLOL HCL 10MG TABLET PO SCH ×2 (05:36→18:58)
[2021-06-13] MEDS: MORPHINE SULFATE 2 MG/ML CPJ (NOT FOR IM USE) IV PRN (06:32)
[2021-06-13 08:00] VITALS: BP 114/63
[2021-06-13] MEDS: OXYCODONE HCL 20MG TABLET SR 12HR PO SCH ×2 (09:00→22:04)
[2021-06-13] MEDS: ENOXAPARIN 30MG/0.3ML SYR SUBCUT SCH (09:47)
[2021-06-13] MEDS: FAMOTIDINE 20MG TABLET PO SCH (09:47)
[2021-06-13] MEDS: SEVELAMER CARBONATE 800 MG TABLET PO SCH ×3 (09:47→18:59)
[2021-06-13 12:00] VITALS: BP 112/40
[2021-06-13 16:00] VITALS: BP 169/48
[2021-06-13 20:00] VITALS: BP 132/73
[2021-06-14] VITALS: BP 140/66
[2021-06-14 04:00] VITALS: BP 130/66
[2021-06-14] MEDS: PROPRANOLOL HCL 10MG TABLET PO SCH (06:56)
[2021-06-14] MEDS: SEVELAMER CARBONATE 800 MG TABLET PO SCH ×2 (06:59→12:06)
[2021-06-14 08:00] VITALS: BP 140/27
[2021-06-14] MEDS: OXYCODONE HCL 20MG TABLET SR 12HR PO SCH ×2 (09:00→09:21)
[2021-06-14] MEDS: ENOXAPARIN 30MG/0.3ML SYR SUBCUT SCH (09:00)
[2021-06-14] MEDS: FAMOTIDINE 20MG TABLET PO SCH (09:21)
[2021-06-14 12:00] VITALS: BP 119/59
[2021-06-14 13:40] VITALS: BP 140/50
== END 2021-06-14 16:10 | disposition home health service (06) | DRG 264 ==
LOC: ER 16:04 → 7EST 20:52 → ENRESERV 23:00
PROVIDERS: ADMIT Internal Medicine; ATTEND Internal Medicine
PROC: 5A1D70Z Performance of Urinary Filtration, Intermittent, Less than 6 Hours Per Day (ICD-10-PCS; 2021-06-09)
PROC: 0JB70ZZ Excision of Back Subcutaneous Tissue and Fascia, Open Approach (ICD-10-PCS; principal; 2021-06-10)
PROC: 5A1D70Z Performance of Urinary Filtration, Intermittent, Less than 6 Hours Per Day (ICD-10-PCS; 2021-06-12)
DX: I13.2 Hypertensive heart and chronic kidney disease with heart failure and with stage 5 chronic kidney disease, or end stage renal disease (principal); L89.143 Pressure ulcer of left lower back, stage 3; E43 Unspecified severe protein-calorie malnutrition; N18.6 End stage renal disease; I50.33 Acute on chronic diastolic (congestive) heart failure; C34.90 Malignant neoplasm of unspecified part of unspecified bronchus or lung; G95.20 Unspecified cord compression; C79.89 Secondary malignant neoplasm of other specified sites; C79.51 Secondary malignant neoplasm of bone; C79.49 Secondary malignant neoplasm of other parts of nervous system; D63.8 Anemia in other chronic diseases classified elsewhere; E05.90 Thyrotoxicosis, unspecified without thyrotoxic crisis or storm; E87.5 Hyperkalemia; I95.3 Hypotension of hemodialysis; E66.9 Obesity, unspecified; G47.33 Obstructive sleep apnea (adult) (pediatric); M48.061 Spinal stenosis, lumbar region without neurogenic claudication; M54.10 Radiculopathy, site unspecified; D64.9 Anemia, unspecified; S30.0XXA Contusion of lower back and pelvis, initial encounter; X58.XXXA Exposure to other specified factors, initial encounter; E83.51 Hypocalcemia; Z79.891 Long term (current) use of opiate analgesic; Z91.11 Patient's noncompliance with dietary regimen; Z91.14 Patient's other noncompliance with medication regimen; Z99.2 Dependence on renal dialysis; Z79.899 Other long term (current) drug therapy; Z85.118 Personal history of other malignant neoplasm of bronchus and lung; Z68.26 Body mass index [BMI] 26.0-26.9, adult; Y93.89 Activity, other specified; Y92.89 Other specified places as the place of occurrence of the external cause; Y99.8 Other external cause status
CPT/HCPCS: 36415; 71045; 80048; 80053; 82040; 82550; 82553; 83605; 83735; 83880; 84100; 84134; 84145; 84439; 84443; 84484; 85025; 86705; 86709; 86803; 87070; 87340; 93970; 97162; 99285; J1650; J2270; J7040